=== PATIENT | male | born 1950 | race African-American/Black ===

== ENCOUNTER 2024-06-19 10:13 | Inpatient (IN) | payer OTHER, BC, MEDICAID ==
[~2024-06-19] VITALS: Ht 170.2 cm; Wt 65.6 kg
[2024-06-19 10:24] VITALS: PULSE 47; RESP 17; O2SAT 96
--- NOTE | 2024-06-19 10:24 | ED.PDOC ---
History of Present Illness HPI Comments 74 y.o male presents with PMH of RI, DM, HTN, HDL, CABG, and CVA, presents to the ED via EMS for a chief complaint of generalized weakness that started this morning. EMS reports patient was at the [facility] when he complained of weakness, states his blood glucose was taken which came out to 142 but was found to be hypotensive at 80/40 and with a heart rate of 50. EMS on scene administrated one liter of NS and push dosed 0.02mg of Epi which brought hear rate up to 72 and blood pressure to 113 systolic. In route, patient's heart rate dropped back down to the low 50's, high 40's, EKG read sinus bradycardia. Patient denies any pain, nausea, vomiting, diarrhea, fever, chills, or recent illness. Time Seen by MD: 10:11 Primary Care Provider: DILLAN Reviewed Notes: Nurses Notes, Supervisor Hot Dip Plating Notes, Medications, Allergies Allergies: Coded Allergies: Ibuprofen (Verified Allergy, Severe, 03/09/17) Naproxen (Verified Allergy, Severe, 03/09/17) Home Meds No Active Prescriptions or Reported Meds Information Source: Patient, Emergency Med Personnel Mode of Arrival: EMS Severity: Moderate Timing: Hours Duration: Since onset Prehospital treatment: 12 Lead EKG, Accucheck, Marketing Assistant [employer], Treatment (0.02mg Epi push dose ) Associated signs and symptoms Generalized weakness and slow heart rate Past Medical History PAST MEDICAL HISTORY: DM, High Lipids, HTN, RI Surgical History: CABG, Tonsillectomy Family History Family History: Unobtainable Social History Smoker: Non-Smoker Alcohol: Denies ETOH Use Drugs: Denies Drug Use Lives In: Home Constitutional: reports: weakness; denies: chills, diaphoresis, fatigue, fever, malaise, sweats, others EENTM: denies: blurred vision, double vision, ear bleeding, ear discharge, ear drainage, ear pain, ear ringing, eye pain, eye redness, hearing loss, mouth pain, mouth swelling, nasal discharge, nose bleeding, nose congestion, nose pain, photophobia, tearing, throat pain, throat swelling, voice changes, others Respiratory: denies: cough, hemoptysis, orthopnea, SOB at rest, shortness of breath, SOB with excertion, stridor, wheezing, others Cardiovascular: reports: others (Slow heart rate); denies: chest pain, dizzy spells, diaphoresis, Dyspnea on exertion, edema, irregular heart beat, left arm pain, lightheadedness, palpitations, PND, syncope Gastrointestinal: denies: abdomen distended, abdominal pain, blood streaked bowels, constipated, diarrhea, dysphagia, difficulty swallowing, hematemesis, melena, nausea, poor appetite, poor fluid intake, rectal bleeding, rectal pain, vomiting, others Genitourinary: denies: burning, dysuria, flank pain, frequency, hematuria, incontinence, penile discharge, penile sore, pain, testicle pain, testicle swelling, urgency, others Neurological: denies: dizziness, fainting, headache, left sided numbness, left sided weakness, numbness, paresthesia, pre-existing deficit, right sided numbness, right sided weakness, seizure, speech problems, tingling, tremors, weakness, others Musculoskeletal: denies: back pain, gout, joint pain, joint swelling, muscle pain, muscle stiffness, neck pain, others Integumetry: denies: bruises, change in color, change in hair/nails, dryness, laceration, lesions, lumps, rash, wounds, others Allergic/Immunocompromised: denies: Difficulty Healing, Frequent Infections, Hives, Itching, others Hematologic/Lymphatic: denies: anemia, blood clots, easy bleeding, easy bruising, swollen glands, others Endocrine: denies: excessive hunger, excessive sweating, excessive thirst, excessive urination, flushing, intolerance to cold, intolerance to heat, unexplained weight gain, unexplained weight loss, others Psychiatric: denies: anxiety, bipolar disorder, depression, hopeless, panic disorder, schizophrenia, sleepless, suicidal, others All Other Systems: Reviewed and Negative Physical Exam General Appearance: Moderate Distress HEENT: Normal ENT Inspection, Pharynx Normal, TMs Normal Neck: Full Range of Motion, Non-Tender, Normal, Normal Inspection Respiratory: Chest Non-Tender, Lungs Clear, No Accessory Muscle Use, No Respiratory Distress, Normal Breath Sounds Cardiovascular: Bradycardia, No Edema, No JVD, No Murmur, No Gallop Breast Exam: Deferred Gastrointestinal: No Organomegaly, Non Tender, No Pulsatile Mass, Normal Bowel Sounds, Soft Genitalia: Deferred Pelvic: Deferred Rectal: Deferred Extremities: No calf tenderness, Normal capillary refill, No pedal edema Musculoskeletal : Apperance: Normal 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 Was a procedure done?: No EKG EKG : Pulse Rate (adult): 51 [place]: Normal Cardiac Rhythm: NSR Differential Dx Considerations may include: Influenza, URI, Dehydration, electrolyte imbalance X-Ray, Labs, Meds, VS Vital Signs Date Time Temp Pulse Resp B/P (MAP) Pulse Ox O2 Delivery O2 Flow Rate FiO2 06/19/24 15:04 47 06/19/24 14:00 89 15 113/64 (80) 96 06/19/24 13:45 61 13 124/64 (84) 96 06/19/24 13:30 82 20 96/48 (64) 96 06/19/24 13:15 89 14 112/48 (69) 96 06/19/24 13:00 79 17 106/58 (74) 96 06/19/24 12:45 93 14 110/43 (65) 96 06/19/24 12:30 86 19 104/47 (66) 96 06/19/24 12:15 86 19 101/44 (63) 95 06/19/24 12:01 81/34 06/19/24 12:00 48 17 74/32 (46) 97 06/19/24 11:55 51 17 74/32 (46) 95 06/19/24 11:51 83/38 06/19/24 11:45 74/28 06/19/24 11:40 72 19 69/27 (41) 97 06/19/24 11:26 77 16 57/29 (38) 95 06/19/24 11:15 74 17 79/42 (54) 100 06/19/24 11:09 82/41 06/19/24 11:00 48 15 82/41 (55) 96 06/19/24 10:41 47 20 76/46 (56) 95 06/19/24 10:24 47 17 96 Room Air* 0 21 06/19/24 10:24 97.5 74 17 79/42 (54) 95 97.5 06/19/24 10:24 51 06/19/24 10:22 97.7 47 16 113/59 (77) 98 06/19/24 10:17 51 Lab Test 06/19/24 13:20 06/19/24 12:42 06/19/24 11:42 06/19/24 10:36 Range/Units Urine Color Light-yellow Yellow Urine Clarity Clear Clear Urine pH 6.0 5.0-9.0 Urine Specific [place] 1.013 1.001-1.035 Urine Protein Negative Negative Urine Ketones Negative Negative Urine Blood Negative Negative /uL Urine Nitrite Negative Negative Urine Bilirubin Negative Negative Urine Urobilinogen Normal Negative mg/dL Urine Leukocyte Esterase 1+ Negative /uL Urine RBC 3 0 - 3 /hpf Urine WBC 2 0 - 3 /hpf Urine Squamous Epithelial Cells Few <5 /hpf Urine Bacteria None seen None Seen /hpf Urine Glucose 4+ H Normal mg/dL Lactic Acid Level 2.9 *H 3.0 *H 0.4-2.0 mmol/L Troponin I High Sensitivity 49 47 46 </=54 ng/L Sodium Level 140 136-145 mmol/L Potassium Level 4.9 3.5-5.1 mmol/L Chloride Level 109 H 98-107 mmol/L Carbon Dioxide Level 22 20-31 mmol/L Anion Gap 9 5-15 Blood Urea Nitrogen 21 9-23 mg/dL Creatinine 1.04 0.700-1.30 mg/dL Glomerular Filtration Rate Calc 76 >90 mL/min BUN/Creatinine Ratio 20.2 H 10.0-20.0 Serum Glucose 171 H 74-106 mg/dL Calcium Level 9.3 8.7-10.4 mg/dL White Blood Count 12.3 H 4.4-10.8 10^3/uL Red Blood Count 4.24 L 4.5-5.90 10^6/uL Hemoglobin 12.6 L 13.5-17.5 g/dL Hematocrit 39.9 L 41.0-53.0 % Mean Corpuscular Volume 94.0 80.0-100.0 fL Mean Corpuscular Hemoglobin 29.7 28.0-32.0 pg Mean Corpuscular Hemoglobin Concent 31.6 L 32.0-36.0 g/dL Red Cell Distribution Width 15.0 H 11.8-14.3 % Platelet Count 207 140-450 10^3/uL Mean Platelet Volume 8.8 6.9-10.8 fL Neutrophils (%) (Auto) 78.9 37.0-80.0 % Lymphocytes (%) (Auto) 13.1 10.0-50.0 % Monocytes (%) (Auto) 6.9 0.0-12.0 % Eosinophils (%) (Auto) 1.0 0.0-7.0 % Basophils (%) (Auto) 0.1 0.0-2.0 % Neutrophils # (Auto) 9.7 H 1.6-8.6 10 ^3/uL Lymphocytes # (Auto) 1.6 0.4-5.4 10 ^3/uL Monocytes # (Auto) 0.8 0-1.3 10 ^3/uL Eosinophils # (Auto) 0.1 0-0.8 10 ^3/uL Basophils # (Auto) 0 0-0.2 10 ^3/uL Nucleated Red Blood Cells 0.1 % D-Dimer, Quantitative 0.42 0.0-0.49 mg/L FEU Current Medications Medications (Trade) Dose Ordered Sig/Duy Route Start Time Stop Time Status Last Admin Sodium Chloride 500 ml @ 500 mls/hr Q1H ONCE IV 06/19/24 10:30 06/19/24 11:29 DC 06/19/24 10:37 Dopamine HCl/ Dextrose 250 ml @ 12.938 mls/ hr [id number] ONCE IV 06/19/24 11:00 06/20/24 06:19 06/19/24 11:09 Sodium Chloride 2,000 ml @ 2,000 mls/hr ONCE ONCE IV 06/19/24 11:30 06/19/24 12:29 DC 06/19/24 11:33 Vancomycin HCl 250 ml @ 250 mls/hr ONCE ONCE IV 06/19/24 11:30 06/19/24 12:29 DC 06/19/24 11:52 Ceftriaxone Sodium 50 ml @ 100 mls/hr ONCE ONCE IV 06/19/24 11:30 06/19/24 11:59 DC 06/19/24 11:37 CHEST RADIOGRAPH IMPRESSION: 1. Bilateral interstitial prominence which may reflect pulmonary congestion. The patient is being given Lasix 40 mg IV push The patient was somewhat hypotensive upon arrival so was started on dopamine. The patient was also significantly bradycardic but we did go ahead and start the dopamine in the patient has been maintaining at a rate in the 70s to 80s. The patient was also now normotensive. The patient's lactic acid came back elevated at 2.9 The patient was started on fluid for possible sepsis. The patient was then started on vancomycin and Rocephin for sepsis protocol. The urine shows a UTI as well The patient's chemistry panel is within normal limits. The patient's CBC shows an elevated white blood cell count of 12.8 but otherwise within normal limits The D-dimer is within normal limits At this time, the patient will be admitted to the ICU We will continue treating the patient with the dopamine for the hypotension and bradycardia A cardiology consult will be obtained The patient was being admitted at this time We have discussed the findings with the patient and he is in agreement with the management. Images Reviewed?: Images reviewed and evaluated by me Time of 1ST Reevaluation: 10:24 Reevaluation 1ST: Unchanged Patient Education/Counseling: Diagnosis, Treatment, Prognosis Family Education/Counseling: No Family Present Departure 1 Departure Time of Disposition: 15:35 Impression: Primary Impression: Chronic kidney disease (CKD) stage G3b/A2, moderately decreased glomerular filtration rate (GFR) between 30-44 mL/min/1.73 square meter and albuminuria creatinine ratio between 30-299 mg/g Additional Impressions: Acute on chronic diastolic heart failure Symptomatic bradycardia Disposition: 09 ADMITTED INPATIENT Admit to: ICU Condition: Guarded e-Prescriptions No Active Prescriptions or Reported Meds Critical Care Note Critical Care Time?: Yes (55 min-critical care time only) Stability Stability form required: Yes Unstable for transfer: Low BP (low high or fluctuating BP), May require CPR (possible rapid decline), ED Physician Assesment (Clinical assesment) I personally scribed for CRIS KNOWLES MD ([email or web address]) on 06/19/24 at 10:24. Electronically submitted by Charmaine Byers (Delivery Agent). I personally scribed for CRIS KNOWLES MD ([email or web address]) on 06/19/24 at 12:23. Electronically submitted by Charmaine Byers ([facility]). CRIS KNOWLES MD Jun 19, 2024 10:24
[2024-06-19] MEDS: SODIUM CHLORIDE 0.9% 500 ML IV ONE (10:37)
[2024-06-19 10:58] LABS: Basophils # (auto) 0 10 ^3/uL (0-0.2); Basophils % (auto) 0.1 % (0.0-2.0); Eosinophils # (auto) 0.1 10 ^3/uL (0-0.8); Hematocrit 39.9 % (41.0-53.0); Hemoglobin 12.6 g/dL (13.5-17.5); Lymphocytes # (auto) 1.6 10 ^3/uL (0.4-5.4); Lymphocytes % (auto) 13.1 % (10.0-50.0); Mean Corpuscular Hemoglobin 29.7 pg (28.0-32.0); Mean Corpuscular Hgb Conc. 31.6 g/dL (32.0-36.0); Monocytes # (auto) 0.8 10 ^3/uL (0-1.3); Monocytes % (auto) 6.9 % (0.0-12.0); Neutrophils # (auto) 9.7 10 ^3/uL (1.6-8.6); Neutrophils % (auto) 78.9 % (37.0-80.0); Nucleated Red Blood Cells % 0.1 %; Platelet Count (auto) 207 10^3/uL (140-450); Red Blood Cells 4.24 10^6/uL (4.5-5.90); White Blood Cell 12.3 10^3/uL (4.4-10.8)
[2024-06-19] MEDS: DOPamine 1600MCG/ML D5W 250 ML IV ONE (11:09)
--- NOTE | 2024-06-19 11:24 | ECG ---
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
[2024-06-19] MEDS: SODIUM CHLORIDE 0.9% 2,000 ML IV ONE (11:33)
[2024-06-19] MEDS: cefTRIAXone 1GM/50ML D5W 50 ML IV ONE (11:37)
[2024-06-19] MEDS: SODIUM CHLORIDE 0.9% 1,000 ML IV ONE (11:45)
[2024-06-19] MEDS: VANCOMYCIN 1GM/250ML KIT 250 ML IV ONE (11:52)
--- NOTE | 2024-06-19 12:15 | DVH ---
CHEST RADIOGRAPH Indication: Weakness Technique: Single frontal view of the chest was obtained Comparison: None FINDINGS: Lines and Tubes: None Lungs: Bilateral interstitial prominence. No focal consolidation. Pleura: No effusion. No pneumothorax. Cardiomediastinal contours: Unremarkable Bones: No acute osseous abnormality. Status post median sternotomy. IMPRESSION: 1. Bilateral interstitial prominence which may reflect pulmonary congestion.
[2024-06-19 12:30] LABS: Potassium 4.9 mmol/L (3.5-5.1); Sodium 140 mmol/L (136-145)
[2024-06-19 12:31] LABS: Anion Gap 9 (5-15); Carbon Dioxide 22 mmol/L (20-31)
[2024-06-19 12:32] LABS: Calcium 9.3 mg/dL (8.7-10.4)
[2024-06-19 12:35] LABS: Chloride 109 mmol/L (98-107)
[2024-06-19 12:36] LABS: BUN/Creatinine Ratio 20.2 (10.0-20.0); Blood Urea Nitrogen 21 mg/dL (9-23)
[2024-06-19 12:40] LABS: Glucose 171 mg/dL (74-106)
[2024-06-19 13:30] LABS: Urine Bacteria None Seen /hpf (None Seen)
[2024-06-19 14:48] LABS: Urine Blood Negative /uL (Negative); Urine Clarity Clear (Clear); Urine Color Light-Yellow (Yellow); Urine Protein, UAD Negative (Negative); Urine Specific Gravity 1.013 (1.001-1.035); Urine Urobilinogen Normal (Negative); Urine WBC 2 /hpf (0 - 3)
[2024-06-19] MEDS ORDERED: ACETAMINOPHEN 325 MG TAB PO PRN (15:30)
[2024-06-19] MEDS ORDERED: DOCUSATE SOD 100 MG CAP PO PRN (15:30)
[2024-06-19] MEDS ORDERED: ONDANSETRON HCL 4 MG/2 ML VIAL IV PRN (15:30)
[2024-06-19] MEDS ORDERED: DEXTROSE (50%) 50ML SYRG IV PRN (15:30)
[2024-06-19] MEDS: HYDROcodone-ACET 5/325MG TAB PO PRN (15:49)
[2024-06-19] MEDS: ACCU-CHEK COMFORT CURVE STRIP VI SCH (17:15)
[2024-06-19] MEDS: InsuLIN REG 1unit/0.01ml Soln (100units/ml) SC SCH ×2 (17:21→21:48)
--- NOTE | 2024-06-19 18:02 | DVHHP2 ---
History of Present Illness Reason for Visit: Hypotension History of Present Illness The patient is a 74-year-old male with past medical history of DM, hyperlipidemia, PR, and hypertension who presented to [facility] ED for evaluation of generalized weakness. Patient reports symptoms progressively get worse that EMS were called. When EMS arrived at the scene, patient was hypotensive with blood pressure at 80/40, heart rate 50, and severe weakness. Patient was given IV fluid 1 L of NS, 0.02 mg of epi with improved vital signs at rate 72, systolic blood pressure at 113 EN route to our facility ED. patient was seen and evaluated in the ED, laboratory data shows WBC 12.3, platelets 207, sodium 140, potassium 4.9, BUN 21, creatinine 1.04, GFR 76, glucose 171, troponin 48, lactic acid 2.9, blood pressure 79/42 trending up to 113/64, heart rate 47 trending up to 88, temperature 97.6, O2 saturation 96% on oxygen. Chest x-ray revealing bilateral interstitial prominence which may reflect pulmonary congestion, urinalysis positive for urinary tract infection. Patient was started on IV antibiotic regimen Zosyn, please see medication orders section in the computer. On my assessment, patient denies chest pain, no headache, no dizziness, no loss of consciousness, currently on oxygen, no nausea, no vomiting, no fever, no chills. Patient was admitted for further evaluation and medical management. Past Medical History DM, High Lipids, HTN, PR Past Surgical History CABG, Tonsillectomy Family History Reviewed, noncontributory to the management of this case. Past Social History The patient lives at home, denies smoking, alcohol or illicit drugs abuse. Review of Systems Constitutional: Yes: Weakness; No: Fever, Chills, Sweats, Malaise, Other Eyes: No: Pain, Vision change, Conjunctivae inflammation, Eyelid inflammation, Other, Redness ENT: No: Ear pain, Ear discharge, Nose pain, Nose discharge, Nose congestion, Mouth pain, Mouth swelling, Throat pain, Throat swelling, Other Respiratory: Shortness of breath; No: Cough, Dry, SOB with excertion, Wheezing, Hemoptysis, Pleuritic Pain, Sputum, Wheezing, Other Cardiovascular: No: Chest Pain, Palpitations, Orthopnea, Paroxysmal Noc. Dyspnea, Edema, Lt Headedness, Other Gastrointestinal: No: Nausea, Vomiting, Abdominal Pain, Diarrhea, Constipation, Melena, Hematochezia, Other Genitourinary: Dysuria; No Frequency, No Incontinence, No Hematuria, No Retention, No Other Musculoskeletal: No: other, neck pain, shoulder pain, arm pain, back pain, hand pain, leg pain, foot pain Skin: No: Rash, Lesions, Jaundice, Bruising, Other Neurological: Weakness; No: Numbness, Incoordination, Change in speech, Confusion, Seizures, Other Allergies: Coded Allergies: Ibuprofen (Verified Allergy, Severe, 03/09/17) Naproxen (Verified Allergy, Severe, 03/09/17) Medications Current Medications Medications Dose Ordered Sig/Duy Route Start Time Stop Time Status Last Admin Dose Admin Piperacillin Sod/ Tazobactam Sod 100 ml @ 25 mls/hr Q8HR IV 06/19/24 22:00 Clopidogrel Bisulfate 75 mg DAILY PO 06/20/24 10:00 Diagnostic Test (Pha) 1 strip ACHS 06/19/24 17:00 06/19/24 17:15 1 STRIP Insulin Human Regular HS SC 06/19/24 22:00 Insulin Human Regular AC SC 06/19/24 17:00 06/19/24 17:21 3 UNITS Dextrose 50 ml UD PRN IV 06/19/24 15:30 Acetaminophen/ Hydrocodone Bitart 1 tab Q4HP PRN PO 06/19/24 15:30 06/19/24 15:49 1 TAB Ondansetron HCl 4 mg Q4HP PRN IV 06/19/24 15:30 Docusate Sodium 100 mg BIDPRN PRN PO 06/19/24 15:30 Acetaminophen 650 mg Q6HP PRN PO 06/19/24 15:30 Sodium Chloride 1,000 ml @ 50 mls/hr Q20H IV 06/19/24 15:30 Exam Vital Signs Vital Signs Date Time Temp Pulse Resp B/P (MAP) Pulse Ox O2 Delivery O2 Flow Rate FiO2 06/19/24 17:43 79 06/19/24 17:15 18 121/77 (92) 93 06/19/24 10:24 Room Air* 0 21 06/19/24 10:24 97.5 97.5 General Appearance: Alert, Oriented X3, Cooperative, No acute distress HEENT: Atraumatic, PERRLA, EOMI, Mucous membr. moist/pink Respiratory: Normal air movement, Other (Congestion) Cardiovascular: Regular rate, Normal S1, Normal S2, No murmurs Abdominal: Normal bowel sounds, Soft, No tenderness, No hepatospenomegaly, No masses Extremities: No clubbing, No cyanosis, No edema, Normal pulses, No tenderness/swelling Skin: No rashes, No breakdown, No significant lesion Neuro: Normal speech, Normal tone, Sensation intact, Cranial nerves 3-12 NL, Reflexes 2+, Other (Generalized weakness) Psych/Mental Status: Mental status NL, Mood NL Labs/Xrays Labs Test 06/19/24 17:13 06/19/24 13:20 06/19/24 12:42 06/19/24 11:42 Range/Units POC Glucose 180 H 70-106 mg/dl Urine Color Light-yellow Yellow Urine Clarity Clear Clear Urine pH 6.0 5.0-9.0 Urine Specific [place] 1.013 1.001-1.035 Urine Protein Negative Negative Urine Ketones Negative Negative Urine Blood Negative Negative /uL Urine Nitrite Negative Negative Urine Bilirubin Negative Negative Urine Urobilinogen Normal Negative mg/dL Urine Leukocyte Esterase 1+ Negative /uL Urine RBC 3 0 - 3 /hpf Urine WBC 2 0 - 3 /hpf Urine Squamous Epithelial Cells Few <5 /hpf Urine Bacteria None seen None Seen /hpf Urine Glucose 4+ H Normal mg/dL Lactic Acid Level 2.9 *H 0.4-2.0 mmol/L Troponin I High Sensitivity 49 </=54 ng/L Sodium Level 140 136-145 mmol/L Potassium Level 4.9 3.5-5.1 mmol/L Chloride Level 109 H 98-107 mmol/L Carbon Dioxide Level 22 20-31 mmol/L Anion Gap 9 5-15 Blood Urea Nitrogen 21 9-23 mg/dL Creatinine 1.04 0.700-1.30 mg/dL Glomerular Filtration Rate Calc 76 >90 mL/min BUN/Creatinine Ratio 20.2 H 10.0-20.0 Serum Glucose 171 H 74-106 mg/dL Calcium Level 9.3 8.7-10.4 mg/dL Test 06/19/24 10:36 Range/Units White Blood Count 12.3 H 4.4-10.8 10^3/uL Red Blood Count 4.24 L 4.5-5.90 10^6/uL Hemoglobin 12.6 L 13.5-17.5 g/dL Hematocrit 39.9 L 41.0-53.0 % Mean Corpuscular Volume 94.0 80.0-100.0 fL Mean Corpuscular Hemoglobin 29.7 28.0-32.0 pg Mean Corpuscular Hemoglobin Concent 31.6 L 32.0-36.0 g/dL Red Cell Distribution Width 15.0 H 11.8-14.3 % Platelet Count 207 140-450 10^3/uL Mean Platelet Volume 8.8 6.9-10.8 fL Neutrophils (%) (Auto) 78.9 37.0-80.0 % Lymphocytes (%) (Auto) 13.1 10.0-50.0 % Monocytes (%) (Auto) 6.9 0.0-12.0 % Eosinophils (%) (Auto) 1.0 0.0-7.0 % Basophils (%) (Auto) 0.1 0.0-2.0 % Neutrophils # (Auto) 9.7 H 1.6-8.6 10 ^3/uL Lymphocytes # (Auto) 1.6 0.4-5.4 10 ^3/uL Monocytes # (Auto) 0.8 0-1.3 10 ^3/uL Eosinophils # (Auto) 0.1 0-0.8 10 ^3/uL Basophils # (Auto) 0 0-0.2 10 ^3/uL Nucleated Red Blood Cells 0.1 % D-Dimer, Quantitative 0.42 0.0-0.49 mg/L FEU PATIENT: YURI BOTELLO ACCT: [id number] UNIT: [id number] : 1950 LOC: ER ROOM / BED: / AGE / SEX: 74 / M ADM STATUS: REG ER SERVICE 1019 ORDERING PHYSICIAN: CRIS KNOWLES MD PROCEDURE(s): CXRP - CHEST PORTABLE REASON: weakness ORDER NUMBER(s): [id number], ACCESSION NUMBER(s): [id number] CHEST RADIOGRAPH Indication: Weakness Technique: Single frontal view of the chest was obtained Comparison: None FINDINGS: Lines and Tubes: None Lungs: Bilateral interstitial prominence. No focal consolidation. Pleura: No effusion. No pneumothorax. Cardiomediastinal contours: Unremarkable Bones: No acute osseous abnormality. Status post median sternotomy. IMPRESSION: 1. Bilateral interstitial prominence which may reflect pulmonary congestion. Assessment/Plan Assessment/Plan Sepsis, unspecified organism Generalized weakness Urinary tract infection Acute on chronic diastolic heart failure Diabetes mellitus with hyperglycemia Plan 1. Admit to intensive care unit 2. Breathing treatment 3. Pain control management 4. IV antibiotic management 5. Management of fluids and electrolytes 6. Consultation for Cardiology 7. Diagnostic test chest x-ray 8. DVT prophylaxis-on Plavix 9. Repeat labs CBC, CMP in a.m. 10. Home medication reviewed and reconciled 11. Continue with current medical management 12. Treatment plan discussed with patient and RN. Patient verbalized understanding. Plan discussed with: Patient, Other (RN) My Orders Orders - KELVIN WALKER DNP Procedure Category Date Status Time Consistent DIET 06/19/24 Transmitted Carb(Ccho)Diabetes Dinner Urine Bacterial AVEL 06/19/24 Logged Culture 15:23 Piperacillin-Tazob PHA 06/19/24 In Process 3.375gm (Zosyn 3.375g 22:00 Clopidogrel Bisulfate PHA 06/20/24 In Process (Plavix) 10:00 Glucose Blood PHA 06/19/24 In Process (Accu-Chek Comfort 17:00 Insulin R (Human) PHA 06/19/24 In Process (Insulin R) 22:00 Insulin R (Human) PHA 06/19/24 In Process (Insulin R) 17:00 Dextrose 50% Syringe PHA 06/19/24 In Process 15:30 Allergies SOCORRO 06/19/24 In Process 15:23 Code Status CODE 06/19/24 Transmitted 15:23 Oxygen Per Hour RT 06/19/24 Transmitted 15:23 Hydrocodone-Acet PHA 06/19/24 In Process 5/325mg Tab ([place] 15:30 Ondansetron Hcl PHA 06/19/24 In Process (Zofran) 15:30 Docusate Sodium PHA 06/19/24 In Process Capsule (Colace 15:30 Fall Risk Precautions SOCORRO 06/19/[address] 15:23 Complete Blood Count LAB 06/20/24 Verified 04:00 Comprehensive LAB 06/20/24 Verified Metabolic Panel 04:00 Cardiac DIET 06/19/24 Transmitted Diet-2gna,Lofat,Lochol Dinner Condition: Serious SOCORRO 06/19/24 In Process 15:23 Acetaminophen Tablet PHA 06/19/24 In Process (Tylenol Tablet) 15:30 Sequential SOCORRO 06/19/24 In Process Compression Device Sod Chl 0.45% (Sodium PHA 06/19/24 In Process Chloride 0.45% Via 15:30 * Cardiology Consult CONS 06/19/24 Transmitted 15:23 Ct Ab Pel Wo Con-No CT 06/19/24 Logged Oral Or Iv 17:08 Problem List: (1) Sepsis, unspecified organism (2) Generalized weakness (3) Urinary tract infection (4) Acute on chronic diastolic heart failure (5) Diabetes mellitus with hyperglycemia Date of Service: Jun 19, 2024 Billing Provider: KELVIN WALKER DNP Common Visit Codes: [id number] INP/OBS CARE (HIGH) KELVIN WALKER DNP Jun 19, 2024 18:02
[2024-06-19] MEDS ORDERED: NITROGLYCERIN 0.4 MG SL TAB SL PRN ×2 (18:15)
[2024-06-19] MEDS ORDERED: MORPHINE SULFATE INJ 2 MG/ml SYRG IV PRN ×2 (18:15)
[2024-06-19] MEDS: DOPamine 1600MCG/ML D5W 250 ML IV SCH (18:40)
[2024-06-19] MEDS: SOD CHL 0.45% 1,000 ML IV SCH (19:23)
--- NOTE | 2024-06-19 20:31 | DVH ---
CT SCAN ABDOMEN AND PELVIS WITHOUT CONTRAST CLINICAL HISTORY: Abd Pain TECHNIQUE: Helical axial images are obtained from the lung bases through the pelvis without oral contrast. No intravenous contrast was administered. Coronal and sagittal reformatted images were generated from thin section reconstructions. One or more of the following radiation dose reduction techniques were used for this examination: automated exposure control, adjustment of the mA and/or kV according to patient size, use of iterative reconstruction technique. COMPARISON: 09/13/2021 FINDINGS: LOWER THORAX: Imaged lung bases are grossly clear. Coronary artery calcifications noted. ABDOMEN AND PELVIS: Evaluation of visceral and vascular structures is limited due to lack of contrast administration. Scattered calcifications in the liver and spleen likely from a prior infectious/inflammatory process. No sizable, radiopaque cholelithiasis. The pancreas and adrenals appear grossly unremarkable. No hydroureteronephrosis. Advanced aortoiliac atherosclerotic calcifications. No evidence of abdominal aortic aneurysm. No evidence of small-bowel obstruction. The appendix not clearly identified, however, no pericecal inflammatory changes are noted at this time. Moderate volume stool throughout the colon and rectum. No free intraperitoneal air or fluid identified. Bladder is markedly distended. No sizable bladder calculus. Degenerative changes of the lumbar spine, most prominent at L5-S1. IMPRESSION: No bowel obstruction, free intraperitoneal air or sizable inflammatory collections identified on this noncontrast examination. Moderate volume stool throughout the colon and rectum may indicate constipation. Distended urinary bladder. Correlate for urinary retention. A few other findings as above. ALY GUERRERO
[2024-06-19] MEDS: PIPERACILLIN-TAZOB 3.375GM 100 ML IV SCH (21:42)
[2024-06-19 22:49] VITALS: PULSE 65; RESP 16; O2SAT 98
[2024-06-20] VITALS (9 sets, daily range): BP systolic 108–145; BP diastolic 45–63; PULSE 61–86; RESP 15–18; TEMP 97.6–98.5; O2SAT 95–98
[2024-06-20 05:55] LABS: Basophils # (auto) 0 10 ^3/uL (0-0.2); Basophils % (auto) 0.4 % (0.0-2.0); Eosinophils # (auto) 0.1 10 ^3/uL (0-0.8); Eosinophils % (auto) 1.1 % (0.0-7.0); Hematocrit 41.7 % (41.0-53.0); Hemoglobin 13.8 g/dL (13.5-17.5); Lymphocytes # (auto) 1.9 10 ^3/uL (0.4-5.4); Lymphocytes % (auto) 22.9 % (10.0-50.0); Mean Corpuscular Hemoglobin 30.5 pg (28.0-32.0); Mean Corpuscular Hgb Conc. 33.2 g/dL (32.0-36.0); Mean Corpuscular Volume 91.8 fL (80.0-100.0); Monocytes % (auto) 12.6 % (0.0-12.0); Neutrophils # (auto) 5.1 10 ^3/uL (1.6-8.6); Nucleated Red Blood Cells % 0.2 %; Platelet Count (auto) 225 10^3/uL (140-450); Red Blood Cells 4.54 10^6/uL (4.5-5.90); Red Cell Distribution Width 14.5 % (11.8-14.3); White Blood Cell 8.1 10^3/uL (4.4-10.8)
[2024-06-20 06:12] LABS: Alanine Aminotransferase 19 U/L (7-40); Alkaline Phosphatase 67 U/L (46-116); Anion Gap 10 (5-15); Aspartate Aminotransferase 19 U/L (13-40); BUN/Creatinine Ratio 13.3 (10.0-20.0); Bilirubin, Total 0.4 mg/dL (0.2-1.0); Blood Urea Nitrogen 12 mg/dL (9-23); Calcium 9.6 mg/dL (8.7-10.4); Carbon Dioxide 23 mmol/L (20-31); Chloride 106 mmol/L (98-107); Potassium 3.8 mmol/L (3.5-5.1); Sodium 139 mmol/L (136-145); Total Protein 6.8 g/dL (5.7-8.2)
[2024-06-20 06:16] LABS: Glucose 122 mg/dL (74-106)
--- NOTE | 2024-06-20 09:43 | DVHINCON2 ---
Date Seen: Jun 20, [address] Reason for Consultation Hypotension History of Present Illness This is a pleasant 74-year-old man who presented to the emergency room via EMS with a chief complaint of generalized weakness yesterday morning. The [place] he felt increased lethargy with a reported syncopal event lasting a "few seconds" with bystanders breaking his fall. Denies any head trauma or incontinence. Upon EMS arrival he was found with a systolic blood pressure in the 80s mmHg and a heart rate in the 50s bpm for which he was medicated with NS x1 L, administered pushed epi at 0.02 mg x 1, and a BSL of 142 ng/dL. Upon arrival to the emergency room he underwent a 12 lead electrocardiogram revealing a sinus rhythm with premature ventricular contractions. At that time, he was administered IV fluids and placed on a dopamine drip for hemodynamic support. Denies chest pain, palpitations, diaphoresis, or shortness of breath. Serial troponin levels are negative. Denies following up with a lead accountant in the outpatient setting. Significant medical history includes severe coronary artery disease status post triple- vessel coronary artery bypass graft at [facility] in 2014, cerebrovascular accident, fep-dgjlryo-cbubnsilr diabetes mellitus, hypertension, dyslipidemia, and depression. Open note, the patient was recently prescribed carvedilol 25 mg q.d. on 06/15/2024. Past Medical History Past medical history reviewed. No other significant than mentioned above. Past Surgical History Triple-vessel CABG, 2014 Family History Family history reviewed. Social History Denies the use of illicit drugs, alcohol, or tobacco use. Allergies: Coded Allergies: Ibuprofen (Verified Allergy, Severe, 03/09/17) Naproxen (Verified Allergy, Severe, 03/09/17) Home Meds No Active Prescriptions or Reported Meds Home Meds Home medications reviewed. Current Medications Current Medications Medications (Trade) Dose Ordered Sig/Duy Route PRN Reason Start Time Stop Time Status Last Admin Piperacillin Sod/ Tazobactam Sod 100 ml @ 25 mls/hr Q8HR IV 06/19/24 22:00 06/20/24 06:03 Clopidogrel Bisulfate (Plavix) 75 mg DAILY PO 06/20/24 10:00 Diagnostic Test (Pha) (Accu-Chek Comfort Curve T) 1 strip ACHS 06/19/24 17:00 06/20/24 06:32 Insulin Human Regular (InsuLIN R) HS SC 06/19/24 22:00 06/19/24 21:48 Insulin Human Regular (InsuLIN R) AC SC 06/19/24 17:00 06/19/24 17:21 Dextrose 50 ml UD PRN IV Blood Sugar LESS THAN 60 06/19/24 15:30 Acetaminophen/ Hydrocodone Bitart ([place] 5/325MG Tab) 1 tab Q4HP PRN PO MODERATE PAIN (4-6 PAIN SCALE) 06/19/24 15:30 06/19/24 15:49 Ondansetron HCl (Zofran) 4 mg Q4HP PRN IV NAUSEA / VOMITING 06/19/24 15:30 Docusate Sodium (Colace Capsule) 100 mg BIDPRN PRN PO FOR CONSTIPATION 06/19/24 15:30 Acetaminophen (Tylenol Tablet) 650 mg Q6HP PRN PO PAIN SCALE 1-3 OR TEMP>100.4 06/19/24 15:30 Sodium Chloride 1,000 ml @ 50 mls/hr Q20H IV 06/19/24 15:30 06/19/24 19:23 Nitroglycerin (Ntrostat Sublingual) 0.4 mg Q5MINP PRN SL FOR CHEST PAIN 06/19/24 18:15 06/19/24 18:06 DC Morphine Sulfate 2 mg Q30M PRN IV FOR CHEST PAIN 06/19/24 18:15 06/19/24 18:06 DC Morphine Sulfate 2 mg Q30M PRN IV FOR CHEST PAIN 06/19/24 18:15 Nitroglycerin (Ntrostat Sublingual) 0.4 mg Q5MINP PRN SL FOR CHEST PAIN 06/19/24 18:15 Dopamine HCl/ Dextrose 250 ml @ 12.938 mls/ hr [id number] IV 06/19/24 18:45 06/19/24 18:40 Review of Systems Constitutional: Generalized weakness Ears, Nose, & Throat: No symptom reported Eyes: No symptom reported Neurological: Dizziness, syncope Pulmonary/Respiratory: No symptom reported Cardiovascular: No symptom reported Gastrointestinal: No symptom reported Genitourinary: No symptom reported Musculoskeletal: No symptom reported Skin: No symptom reported Psychiatric: No symptom reported Endocrine: No symptom reported Hemotologic/Lymphatic: No symptom reported Vital Signs Vital Signs Date Time Temp Pulse Resp B/P (MAP) Pulse Ox O2 Delivery O2 Flow Rate FiO2 06/20/24 09:16 87 12 115/64 (81) 95 06/20/24 08:00 Room Air* 0 21 06/20/24 08:00 98.1 98.1 Physical Exam General Appearance: Cooperative. Well developed. Well nourished. In no acute distress Head Exam: Normal inspection Neck Exam: Normal inspection. Non-tender. Normal alignment Pulmonary/Respiratory: Chest non-tender. Clear bilateral breath sounds Cardiovascular/Chest: Regular rate and rhythm. S1, S2. Sinus rhythm with PVCs. No murmurs. No JVD. Peripheral Pulses: 2+ Radial (R). 2+ Radial (L). 2+ Pedal (R). 2+ Pedal (L) Abdominal Exam: Normal bowel sounds. Soft. Nontender. No hepatospenomegaly. No masses Ankle Exam: Negative ankle edema Lower extremities: Negative lower extremity edema Neuro/Mental Status: A&O x3. Coherent Thoughts/Psych: Normal thought pattern. Appropriate mood and affect. Good judgement and insight Appearance: In no acute distress Skin Exam: Normal inspection. Normal color. Warm. Dry Labs/Diagnostic Data Labs Test 06/20/24 06:30 06/20/24 05:20 06/19/24 13:20 06/19/24 12:42 Range/Units POC Glucose 122 H 70-106 mg/dl White Blood Count 8.1 # 4.4-10.8 10^3/uL Red Blood Count 4.54 4.5-5.90 10^6/uL Hemoglobin 13.8 13.5-17.5 g/dL Hematocrit 41.7 41.0-53.0 % Mean Corpuscular Volume 91.8 80.0-100.0 fL Mean Corpuscular Hemoglobin 30.5 28.0-32.0 pg Mean Corpuscular Hemoglobin Concent 33.2 32.0-36.0 g/dL Red Cell Distribution Width 14.5 H 11.8-14.3 % Platelet Count 225 140-450 10^3/uL Mean Platelet Volume 8.5 6.9-10.8 fL Neutrophils (%) (Auto) 63.0 37.0-80.0 % Lymphocytes (%) (Auto) 22.9 10.0-50.0 % Monocytes (%) (Auto) 12.6 H 0.0-12.0 % Eosinophils (%) (Auto) 1.1 0.0-7.0 % Basophils (%) (Auto) 0.4 0.0-2.0 % Neutrophils # (Auto) 5.1 1.6-8.6 10 ^3/uL Lymphocytes # (Auto) 1.9 0.4-5.4 10 ^3/uL Monocytes # (Auto) 1.0 0-1.3 10 ^3/uL Eosinophils # (Auto) 0.1 0-0.8 10 ^3/uL Basophils # (Auto) 0 0-0.2 10 ^3/uL Nucleated Red Blood Cells 0.2 % Sodium Level 139 136-145 mmol/L Potassium Level 3.8 3.5-5.1 mmol/L Chloride Level 106 98-107 mmol/L Carbon Dioxide Level 23 20-31 mmol/L Anion Gap 10 5-15 Blood Urea Nitrogen 12 9-23 mg/dL Creatinine 0.90 0.700-1.30 mg/dL Glomerular Filtration Rate Calc 91 >90 mL/min BUN/Creatinine Ratio 13.3 10.0-20.0 Serum Glucose 122 H 74-106 mg/dL Calcium Level 9.6 8.7-10.4 mg/dL Total Bilirubin 0.4 0.2-1.0 mg/dL Aspartate Amino Transferase (AST) 19 13-40 U/L Alanine Aminotransferase (ALT) 19 7-40 U/L Alkaline Phosphatase 67 46-116 U/L Total Protein 6.8 5.7-8.2 g/dL Albumin 4.0 3.2-4.8 g/dL Urine Color Light-yellow Yellow Urine Clarity Clear Clear Urine pH 6.0 5.0-9.0 Urine Specific [place] 1.013 1.001-1.035 Urine Protein Negative Negative Urine Ketones Negative Negative Urine Blood Negative Negative /uL Urine Nitrite Negative Negative Urine Bilirubin Negative Negative Urine Urobilinogen Normal Negative mg/dL Urine Leukocyte Esterase 1+ Negative /uL Urine RBC 3 0 - 3 /hpf Urine WBC 2 0 - 3 /hpf Urine Squamous Epithelial Cells Few <5 /hpf Urine Bacteria None seen None Seen /hpf Urine Glucose 4+ H Normal mg/dL Lactic Acid Level 2.9 *H 0.4-2.0 mmol/L Troponin I High Sensitivity 49 </=54 ng/L Test 06/19/24 10:36 Range/Units D-Dimer, Quantitative 0.42 0.0-0.49 mg/L FEU B-Type Natriuretic Peptide 71.11 0-100 pg/mL Microbiology Date/Time Source Procedure Growth Status 06/19/24 13:20 Voided Urine Urine Culture - Preliminary Resulted Assessment Syncope and collapse Likely beta-dominga induced bradycardia/hypotension Coronary artery disease status post triple-vessel CABG, 2014 Rule out structural heart disease Hypertension Dyslipidemia HX of CVA Ypu-nzpbqnh-bzjvxycwq diabetes mellitus Urinary retention Plan/Recommendation (Dr. Julian) The patient with generalized weakness, syncope, and collapse is scheduled for a head CT to rule out acute intracranial processes. In the meantime, obtain a transthoracic echocardiogram to rule out structural heart disease. Highly suspected beta-dominga induced bradycardia and hypotension as the patient was recently prescribed carvedilol 25 mg on 06/15/2024. Avoid AV stalin blocking agents and antihypertensive therapy at this time. Initiate single-antiplatelet therapy and lipid lowering agent given history of coronary artery disease. Monitor ECG changes and notify. Thank you for allowing us to participate in th is patient's care. Please call if you have any questions or concerns. This medical document was created using an electronic medical record system with voice recognition software and computerized dictation system. Although this document has been carefully reviewed, there might still be some phonetic and typographical errors. Occasional wrong-word or ``sound-alike substitutions may have occurred due to the inherent limitations of voice recognition software. These areas are purely typographical due to imperfections of the software programs and do not reflect any compromise in the patient's medical care. Please read the chart carefully and recognize, using context, where these substitutions have occurred. Plan discussed with: Patient, Other Date of Service: Jun 20, 2024 Billing Provider: SHANA JULIAN MD Cardiology Common Codes: [id number] INP/OBS CARE (High) HARVEY BARCENAS [facility] Jun 20, 2024 09:43
[2024-06-20] MEDS: CLOPIDOGREL BISULFATE 75 MG TAB PO SCH (10:15)
[2024-06-20 10:35] LABS: Magnesium 1.8 mg/dL (1.6-2.6)
--- NOTE | 2024-06-20 11:00 | DVH ---
EXAM: CT HEAD WITHOUT CONTRAST INDICATION: Syncope TECHNIQUE: CT of the head without intravenous contrast. Radiation Dose Information: CT Dose: CTDI volume is 55.80 mGy. Dose-length product is 986.41 mGy*cm The dose indicators for CT are the volume Computed Tomography (CT) Dose Index (CTDIvol) and the Dose Length Product (DLP), and are measured in units of mGy and mGy-cm, respectively. These indicators are not patient dose, but values generated from the CT scanner acquisition factors. The report includes radiation exposure data for exposures received during this examination. COMPARISON: CT brain report 12/28/2021 FINDINGS: There is no evidence of acute intracranial hemorrhage, extra-axial collection, mass effect, midline s hift, herniation or hydrocephalus. Subcentimeter chronic appearing lacunar infarct at the right cauda te head / internal capsule. The ventricles, sulci and cisterns are age appropriate. Bilateral basal ganglia calcifications. The ramos-white differentiation is intact. Patchy periventricular and subcortical white matter hypoattenuation is nonspecific but may be related to small vessel ischemic disease. The visualized paranasal sinuses and mastoid air cells are clear. The surrounding soft tissues and osseous structures are unremarkable. IMPRESSION: 1. No CT evidence of acute intracranial abnormality. 2. Chronic appearing subcentimeter lacunar infarct of the right caudate head / internal capsule. 3. Moderate periventricular and deep white matter hypoattenuation, likely representing chronic microa ngiopathic ischemic disease. HS:Y
--- NOTE | 2024-06-20 12:00 | DVHPN2 ---
Reviewed: Care Plan, H&P, Labs, Medications, Previous Orders, Radiology Changes from previous H/P or p: No Changes Eyes: No Pain, No Vision change, No Conjunctivae inflammation, No Eyelid inflammation, No Other, No Redness ENT: No Ear pain, No Ear discharge, No Nose pain, No Nose discharge, No Nose congestion, No Mouth pain, No Mouth swelling, No Throat pain, No Throat swelling, No Other Cardiovascular: No Chest Pain, No Palpitations, No Orthopnea, No Paroxysmal Noc. Dyspnea, No Edema, No Lt Headedness, No Other Respiratory: No Cough, No Dry; Shortness of breath; No SOB with excertion, No Wheezing, No Hemoptysis, No Pleuritic Pain, No Sputum, No Other Gastrointestinal: No Nausea, No Vomiting, No Abdominal Pain, No Diarrhea, No Constipation, No Melena, No Hematochezia, No Other Genitourinary: Dysuria; No Frequency, No Incontinence, No Hematuria, No Retention, No Other Musculoskeletal: No other, No neck pain, No shoulder pain, No arm pain, No back pain, No hand pain, No leg pain, No foot pain Skin: No Rash, No Lesions, No Jaundice, No Bruising, No Other Objective Vitals Vital Signs Date Time Temp Pulse Resp B/P (MAP) Pulse Ox O2 Delivery O2 Flow Rate FiO2 06/20/24 10:57 64 15 95 Room Air* 0 21 06/20/24 10:15 88/46 (60) 06/20/24 08:00 98.1 98.1 Intake/Output Intake and Output 06/20/24 07:00 Intake Total 3433.460 ml Output Total 4000 ml Balance -566.540 ml Intake IV Total 3433.460 ml Output Urine Total 4000 ml Medications Current Medications Medications Dose Ordered Sig/Duy Route Start Time Stop Time Status Last Admin Dose Admin Piperacillin Sod/ Tazobactam Sod 100 ml @ 25 mls/hr Q8HR IV 06/19/24 22:00 06/20/24 06:03 25 MLS/HR Clopidogrel Bisulfate 75 mg DAILY PO 06/20/24 10:00 06/20/24 10:15 75 MG Diagnostic Test (Pha) 1 strip ACHS 06/19/24 17:00 06/20/24 06:32 1 STRIP Insulin Human Regular HS SC 06/19/24 22:00 06/19/24 21:48 3 UNITS Insulin Human Regular AC SC 06/19/24 17:00 06/19/24 17:21 3 UNITS Dextrose 50 ml UD PRN IV 06/19/24 15:30 Acetaminophen/ Hydrocodone Bitart 1 tab Q4HP PRN PO 06/19/24 15:30 06/19/24 15:49 1 TAB Ondansetron HCl 4 mg Q4HP PRN IV 06/19/24 15:30 Docusate Sodium 100 mg BIDPRN PRN PO 06/19/24 15:30 Acetaminophen 650 mg Q6HP PRN PO 06/19/24 15:30 Sodium Chloride 1,000 ml @ 50 mls/hr Q20H IV 06/19/24 15:30 06/20/24 11:08 50 MLS/HR Morphine Sulfate 2 mg Q30M PRN IV 06/19/24 18:15 Nitroglycerin 0.4 mg Q5MINP PRN SL 06/19/24 18:15 Atorvastatin Calcium 40 mg HS PO 06/20/24 22:00 Enoxaparin Sodium 40 mg DAILY SC 06/21/24 10:00 Laboratory Results Laboratory Tests 06/20/24 05:20 Chemistry Test 06/20/24 05:20 Albumin 4.0 g/dL (3.2-4.8) Calcium Level 9.6 mg/dL (8.7-10.4) Magnesium Level 1.8 mg/dL (1.6-2.6) Total Protein 6.8 g/dL (5.7-8.2) Lipid panel Test 06/20/24 05:20 Cholesterol Level 117 mg/dL (< 200) HDL Cholesterol 54 mg/dL (40-59) Triglycerides Level 88 mg/dL (< 150) LFT Test 06/20/24 05:20 Alanine Aminotransferase (ALT) 19 U/L (7-40) Alkaline Phosphatase 67 U/L (46-116) Aspartate Amino Transferase (AST) 19 U/L (13-40) Total Bilirubin 0.4 mg/dL (0.2-1.0) HgA1c, TSH Test 06/20/24 05:20 Hemoglobin A1c 7.4 % A1C (<5.7) H Thyroid Stimulating Hormone (TSH) 0.39 uIU/mL (0.55-4.78) L Urinalysis Test 06/19/24 13:20 Urine Color Light-yellow (Yellow) Urine Clarity Clear (Clear) Urine pH 6.0 (5.0-9.0) Urine Specific [place] 1.013 (1.001-1.035) Urine Protein Negative (Negative) Urine Ketones Negative (Negative) Urine Blood Negative /uL (Negative) Urine Nitrite Negative (Negative) Urine Bilirubin Negative (Negative) Urine Urobilinogen Normal mg/dL (Negative) Urine Leukocyte Esterase 1+ /uL (Negative) Urine RBC 3 /hpf (0 - 3) Urine WBC 2 /hpf (0 - 3) Urine Squamous Epithelial Cells Few /hpf (<5) Urine Bacteria None seen /hpf (None Seen) Urine Glucose 4+ mg/dL (Normal) H Microbiology Microbiology Date/Time Source Procedure Growth Status 06/19/24 13:20 Voided Urine Urine Culture - Preliminary Resulted 06/19/24 10:36 Blood Blood Culture - Preliminary NO GROWTH AFTER 24 HOURS OF INCUBATION. 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 cardiology consult appreciated Coronary artery disease status post triple-vessel CABG, 2014 Rule out structural heart disease Hypertension Dyslipidemia HX of CVA Ysc-ddrjpjl-syowxjnxw diabetes mellitus Urinary retention Echocardiogram result pending CT head negative CT abdomen pelvis without contrast negative Blood cultures negative Urine cultures negative Time Spent 65 minutes Patient is full code Advanced care planning time 20 minutes Patient is hospice revoked Plan discussed with: Patient Date of Service: Jun 20, 2024 Billing Provider: KAMALJIT WEBB MD Common Visit Codes: [id number] CARE 30-74 MIN KAMALJIT WEBB MD Jun 20, 2024 12:00
--- NOTE | 2024-06-20 14:11 | DVHSR ---
APPROVED REPORT EXAM: Two-dimensional and M-mode echocardiogram with Doppler and color Doppler. Blood Pressure: 122/67 mmHg INDICATION Heart Failure RISK FACTORS Height: 5'7", Weight: 152 DIMENSIONS LVDd5.1 (3.8-5.7cm)LA (2D)3.3 (1.9-4.0cm)Aortic Root3.5 (2.0-3.7cm) LVDs3.9 (2.5-4.0cm)LA (MM) (1.9-4.0cm)Aortic Cusp Exc1.8 (1.5-2.0cm) EF (%) 45.0 (55-70%)Rt. Atrium (1.9-4.0cm)Asc. Aorta cm IVSd1.2 (0.7-1.1cm)RV (D) (1.8-2.4cm) PWd0.9 (0.7-1.1cm) Mitral Valve MitralMitral Stenosis E wave0.58m/sMV Mean GR.mmHg A wave0.76m/sMV Peak GR.mmHg E/A ratio0.82D MVAcm2 DECEL [id number] 1/2 Timems Aortic Valve Aortic ValveAortic Stenosis V10.81m/Angelique Mean GR.3mmHg V21.08m/Angelique Peak GR.5mmHg LVOT Diameter2.2 (1.8-2.4cm)Doppler AVA2.85cm2 Tricuspid Valve TR Velocity2.19m/s [id number] Other Information Quality : Technically LimitedRhythm : Technically limited study due to body habitus and breathing. Conclusion Moderately reduced left ventricular systolic function estimate ejection fraction 40% in a global [facility] ion. There is a grade 1 diastolic function. Normal right ventricular size and dimension. Normal right ventricular systolic function. Normal biatrial size and dimension. Normal aortic valve structure and function. Normal mitral valve structure and function. Normal tricuspid valve structure and function. The pulmonary valve is grossly normal. No pericardial fusion.
[2024-06-20] MEDS: MAGNESIUM SULFATE 1GM/100ML 100 ML IV ONE (18:00)
[2024-06-20] MEDS: GLUCAGON EMERG KIT 1mg/1ml IV ONE (19:02)
[2024-06-20] MEDS: ATORVASTATIN 20 MG TAB PO SCH (22:24)
[2024-06-21] VITALS (8 sets, daily range): BP systolic 107–128; BP diastolic 58–79; PULSE 61–94; RESP 14–18; TEMP 98–99.2; O2SAT 96–99
[2024-06-21 07:41] LABS: Basophils # (auto) 0 10 ^3/uL (0-0.2); Basophils % (auto) 0.5 % (0.0-2.0); Eosinophils # (auto) 0.1 10 ^3/uL (0-0.8); Eosinophils % (auto) 0.8 % (0.0-7.0); Hematocrit 46.3 % (41.0-53.0); Hemoglobin 15.2 g/dL (13.5-17.5); Lymphocytes # (auto) 1.9 10 ^3/uL (0.4-5.4); Lymphocytes % (auto) 22.8 % (10.0-50.0); Mean Corpuscular Hemoglobin 30.1 pg (28.0-32.0); Mean Corpuscular Hgb Conc. 32.9 g/dL (32.0-36.0); Mean Corpuscular Volume 91.6 fL (80.0-100.0); Monocytes # (auto) 0.8 10 ^3/uL (0-1.3); Neutrophils # (auto) 5.5 10 ^3/uL (1.6-8.6); Neutrophils % (auto) 65.9 % (37.0-80.0); Nucleated Red Blood Cells % 0.1 %; Platelet Count (auto) 241 10^3/uL (140-450); Red Blood Cells 5.05 10^6/uL (4.5-5.90); Red Cell Distribution Width 14.5 % (11.8-14.3); White Blood Cell 8.3 10^3/uL (4.4-10.8)
[2024-06-21 07:44] LABS: Chloride 106 mmol/L (98-107); Potassium 3.8 mmol/L (3.5-5.1); Sodium 141 mmol/L (136-145)
[2024-06-21 07:45] LABS: Anion Gap 10 (5-15); Calcium 10.1 mg/dL (8.7-10.4); Carbon Dioxide 25 mmol/L (20-31)
[2024-06-21 07:50] LABS: BUN/Creatinine Ratio 16.7 (10.0-20.0); Blood Urea Nitrogen 17 mg/dL (9-23); Glucose 68 mg/dL (74-106)
[2024-06-21 07:51] LABS: Magnesium 2.1 mg/dL (1.6-2.6)
--- NOTE | 2024-06-21 09:23 | DVHPN2 ---
Reviewed: Care Plan, H&P, Labs, Medications, Previous Orders, Radiology Changes from previous H/P or p: No Changes Eyes: No Pain, No Vision change, No Conjunctivae inflammation, No Eyelid inflammation, No Other, No Redness ENT: No Ear pain, No Ear discharge, No Nose pain, No Nose discharge, No Nose congestion, No Mouth pain, No Mouth swelling, No Throat pain, No Throat swelling, No Other Cardiovascular: No Chest Pain, No Palpitations, No Orthopnea, No Paroxysmal Noc. Dyspnea, No Edema, No Lt Headedness, No Other Respiratory: No Cough, No Dry; Shortness of breath; No SOB with excertion, No Wheezing, No Hemoptysis, No Pleuritic Pain, No Sputum, No Other Gastrointestinal: No Nausea, No Vomiting, No Abdominal Pain, No Diarrhea, No Constipation, No Melena, No Hematochezia, No Other Genitourinary: Dysuria; No Frequency, No Incontinence, No Hematuria, No Retention, No Other Musculoskeletal: No other, No neck pain, No shoulder pain, No arm pain, No back pain, No hand pain, No leg pain, No foot pain Skin: No Rash, No Lesions, No Jaundice, No Bruising, No Other Objective Vitals Vital Signs Date Time Temp Pulse Resp B/P (MAP) Pulse Ox O2 Delivery O2 Flow Rate FiO2 06/21/24 08:08 98.0 86 16 128/77 (94) 99 98.0 06/21/24 08:00 Room Air* 0 21 Intake/Output Intake and Output 06/21/24 07:00 Intake Total 1040 ml Output Total 2475 ml Balance -1435 ml Intake Oral 1040 ml Output Urine Total 2475 ml # Bowel Movements 1 Medications Current Medications Medications Dose Ordered Sig/Duy Route Start Time Stop Time Status Last Admin Dose Admin Piperacillin Sod/ Tazobactam Sod 100 ml @ 25 mls/hr Q8HR IV 06/19/24 22:00 06/21/24 06:16 25 MLS/HR Clopidogrel Bisulfate 75 mg DAILY PO 06/20/24 10:00 06/20/24 10:15 75 MG Diagnostic Test (Pha) 1 strip ACHS 06/19/24 17:00 06/21/24 06:16 1 STRIP Insulin Human Regular HS SC 06/19/24 22:00 06/20/24 22:38 8 UNITS Insulin Human Regular AC SC 06/19/24 17:00 06/20/24 11:59 9 UNITS Dextrose 50 ml UD PRN IV 06/19/24 15:30 Acetaminophen/ Hydrocodone Bitart 1 tab Q4HP PRN PO 06/19/24 15:30 06/19/24 15:49 1 TAB Ondansetron HCl 4 mg Q4HP PRN IV 06/19/24 15:30 Docusate Sodium 100 mg BIDPRN PRN PO 06/19/24 15:30 Acetaminophen 650 mg Q6HP PRN PO 06/19/24 15:30 Sodium Chloride 1,000 ml @ 50 mls/hr Q20H IV 06/19/24 15:30 06/21/24 07:32 50 MLS/HR Morphine Sulfate 2 mg Q30M PRN IV 06/19/24 18:15 Nitroglycerin 0.4 mg Q5MINP PRN SL 06/19/24 18:15 Atorvastatin Calcium 40 mg HS PO 06/20/24 22:00 06/20/24 22:24 40 MG Enoxaparin Sodium 40 mg DAILY SC 06/21/24 10:00 Laboratory Results Laboratory Tests 06/21/24 05:58 Chemistry Test 06/21/24 05:58 Calcium Level 10.1 mg/dL (8.7-10.4) Magnesium Level 2.1 mg/dL (1.6-2.6) Urinalysis Test 06/19/24 13:20 Urine Color Light-yellow (Yellow) Urine Clarity Clear (Clear) Urine pH 6.0 (5.0-9.0) Urine Specific [place] 1.013 (1.001-1.035) Urine Protein Negative (Negative) Urine Ketones Negative (Negative) Urine Blood Negative /uL (Negative) Urine Nitrite Negative (Negative) Urine Bilirubin Negative (Negative) Urine Urobilinogen Normal mg/dL (Negative) Urine Leukocyte Esterase 1+ /uL (Negative) Urine RBC 3 /hpf (0 - 3) Urine WBC 2 /hpf (0 - 3) Urine Squamous Epithelial Cells Few /hpf (<5) Urine Bacteria None seen /hpf (None Seen) Urine Glucose 4+ mg/dL (Normal) H Microbiology Microbiology Date/Time Source Procedure Growth Status 06/19/24 13:20 Voided Urine Urine Culture - Preliminary Resulted 06/19/24 10:36 Blood Blood Culture - Preliminary NO GROWTH AFTER 24 HOURS OF INCUBATION. 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 cardiology consult appreciated History of Coronary artery disease status post triple-vessel CABG, 2014 Rule out structural heart disease, echocardiogram 40 % ejection fraction Hypertension Dyslipidemia HX of CVA Oaw-imibtvl-vlqerstvt diabetes mellitus Urinary retention CT head negative CT abdomen pelvis without contrast negative Blood cultures negative Urine cultures negative Time Spent 55 minutes Patient is full code Advanced care planning time 20 minutes Patient is hospice revoked Plan discussed with: Patient Date of Service: Jun 21, 2024 Billing Provider: KAMALJIT WEBB MD Common Visit Codes: [id number] INP/OBS CARE(HIGH) KAMALJIT WEBB MD Jun 21, 2024 09:23
[2024-06-21] MEDS: ENOXAPARIN SOD 40 MG/0.4 ML SYRINGE SC SCH (09:53)
[2024-06-21] MEDS ORDERED: ENOXAPARIN SOD 30 MG/0.3 ML SYRINGE SC SCH (10:00)
--- NOTE | 2024-06-21 10:47 | DVH ---
BLADDER ULTRASOUND CLINICAL HISTORY: Acute urinary retention ruled out enlarged prostate TECHNIQUE: Multiple transabdominal ultrasound images of the bladder were obtained. COMPARISON: None FINDINGS: There is a Campbell catheter within the bladder which is decompressed limiting evaluation. There is part ial visualization of the prostate gland which measures 0.0 x 2.0 x 2.6 cm. There is no obvious free f luid in the pelvis. IMPRESSION: 1. Limited evaluation decompressed bladder with Campbell catheter. HS:Y
--- NOTE | 2024-06-21 12:19 | DVHPN2 ---
Consult Progress Note Subjective Other Systems: Patient now in normal sinus rhythm on radiation monitor. Patient denies any cardiac symptoms at time of assessment. Objective vital signs Vital Sign Date Time Temp Pulse Resp B/P (MAP) Pulse Ox O2 Delivery O2 Flow Rate FiO2 06/21/24 08:08 98.0 86 16 128/77 (94) 99 98.0 06/21/24 08:00 Room Air* 0 21 Total Intake and Output 06/20/24 06/20/24 06/21/24 15:00 23:00 07:00 Intake Total 800 ml 240 ml Output Total 1200 ml 900 ml 375 ml Balance -1200 ml -100 ml -135 ml medications Current Medications Medications Dose Ordered Sig/Duy Route Start Time Stop Time Status Last Admin Dose Admin Piperacillin Sod/ Tazobactam Sod 100 ml @ 25 mls/hr Q8HR IV 06/19/24 22:00 06/21/24 06:16 25 MLS/HR Clopidogrel Bisulfate 75 mg DAILY PO 06/20/24 10:00 06/21/24 09:53 75 MG Diagnostic Test (Pha) 1 strip ACHS 06/19/24 17:00 06/21/24 11:20 1 STRIP Insulin Human Regular HS SC 06/19/24 22:00 06/20/24 22:38 8 UNITS Insulin Human Regular AC SC 06/19/24 17:00 06/21/24 12:02 9 UNITS Dextrose 50 ml UD PRN IV 06/19/24 15:30 Acetaminophen/ Hydrocodone Bitart 1 tab Q4HP PRN PO 06/19/24 15:30 06/19/24 15:49 1 TAB Ondansetron HCl 4 mg Q4HP PRN IV 06/19/24 15:30 Docusate Sodium 100 mg BIDPRN PRN PO 06/19/24 15:30 Acetaminophen 650 mg Q6HP PRN PO 06/19/24 15:30 Sodium Chloride 1,000 ml @ 50 mls/hr Q20H IV 06/19/24 15:30 06/21/24 07:32 50 MLS/HR Morphine Sulfate 2 mg Q30M PRN IV 06/19/24 18:15 Nitroglycerin 0.4 mg Q5MINP PRN SL 06/19/24 18:15 Atorvastatin Calcium 40 mg HS PO 06/20/24 22:00 06/20/24 22:24 40 MG Enoxaparin Sodium 40 mg DAILY SC 06/21/24 10:00 06/21/24 09:53 40 MG Examination: GENERAL:Normal, LUNGS:Normal, CVS:Normal, NEURO:Normal laboratory and microbiology Laboratory Tests 06/21/24 05:58 Test 06/21/24 05:58 Range/Units Serum Glucose 68 L 74-106 mg/dL Problem List/Assessment/Plan Problem List/Assessment/Plan Syncope and collapse 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 Julian) Case discussed and reviewed with Dr. Julian. Today, the patient is back in normal sinus rhythm with PAC's, no episodes of pauses or AV blocks. Transthoracic echocardiogram reveals EF 40%. We will initiate GDMT for CHF as tolerated. Maintain strict intake and output, daily weights, maintain fluid restriction. It was highly suspected the patient had a beta-dominga induced bradycardia and hypotension when the patient was taking recently prescribed carvedilol 25 mg on 06/15/2024. We will instead initiate a low-dose metoprolol this time. Continue single antiplatelet therapy and lipid-lowering agent. Keep patient on continuous radiation monitor and notify cardio team immediately for any ECG changes. Thank you for allowing us to care for this patient. Please call with any questions or concerns. This medical document was created using an electronic medical record system with voice recognition software and computerized dictation system. Although this document has been carefully reviewed, there might still be some phonetic and typographical errors. Occasional wrong-word or ``sound-alike substitutions may have occurred due to the inherent limitations of voice recognition software. These areas are purely typographical due to imperfections of the software programs and do not reflect any compromise in the patient's medical care. Please read the chart carefully and recognize, using context, where these substitutions have occurred. Plan discussed with: Patient Date of Service: Jun 21, 2024 Billing Provider: SHANA JULIAN MD Common Visit Codes: [id number] INP/OBS CARE(HIGH) KYLIE MILLER [employer] Jun 21, 2024 12:19
[2024-06-21] MEDS: SACUBITRIL-VALSARTAN 24mg/26mg TAB PO SCH (22:30)
[2024-06-21] MEDS: METOPROLOL TARTRATE 25 MG TAB PO SCH (22:31)
[2024-06-22] VITALS (8 sets, daily range): BP systolic 106–138; BP diastolic 61–85; PULSE 79–111; RESP 13–20; TEMP 98.4–99.5; O2SAT 95–98
[2024-06-22] MEDS: PIPERACILLIN-TAZOB 3.375GM 100 ML IV ONE (06:23)
[2024-06-22 06:42] LABS: Basophils # (auto) 0 10 ^3/uL (0-0.2); Basophils % (auto) 0.4 % (0.0-2.0); Eosinophils # (auto) 0.1 10 ^3/uL (0-0.8); Eosinophils % (auto) 1.2 % (0.0-7.0); Hematocrit 45.5 % (41.0-53.0); Hemoglobin 14.8 g/dL (13.5-17.5); Lymphocytes # (auto) 2.7 10 ^3/uL (0.4-5.4); Lymphocytes % (auto) 29.5 % (10.0-50.0); Mean Corpuscular Hemoglobin 29.9 pg (28.0-32.0); Mean Corpuscular Hgb Conc. 32.6 g/dL (32.0-36.0); Mean Corpuscular Volume 91.8 fL (80.0-100.0); Monocytes % (auto) 10.6 % (0.0-12.0); Neutrophils # (auto) 5.3 10 ^3/uL (1.6-8.6); Neutrophils % (auto) 58.3 % (37.0-80.0); Nucleated Red Blood Cells % 0.1 %; Platelet Count (auto) 241 10^3/uL (140-450); Red Blood Cells 4.96 10^6/uL (4.5-5.90); Red Cell Distribution Width 14.6 % (11.8-14.3)
[2024-06-22 06:50] LABS: Anion Gap 9 (5-15); Calcium 9.7 mg/dL (8.7-10.4); Carbon Dioxide 23 mmol/L (20-31); Potassium 3.8 mmol/L (3.5-5.1); Sodium 141 mmol/L (136-145)
[2024-06-22 06:52] LABS: Chloride 109 mmol/L (98-107)
[2024-06-22 06:56] LABS: Blood Urea Nitrogen 15 mg/dL (9-23)
[2024-06-22 06:58] LABS: Glucose 111 mg/dL (74-106)
[2024-06-22 08:06] LABS: PSA Free 1.45 ng/mL; Prostate Specific Antigen 8.2 ng/mL (0.0-4.0)
[2024-06-22] MEDS: FLUCONAZOLE 200MG/100ML 100 ML IV SCH (09:55)
[2024-06-22] MEDS: EMPAGLIFLOZIN 10 MG TAB PO SCH (09:56)
[2024-06-22] MEDS: SPIRONOLACTONE 25 MG TAB PO SCH (09:56)
--- NOTE | 2024-06-22 09:58 | DVHPN2 ---
Reviewed: Care Plan, H&P, Labs, Medications, Previous Orders, Radiology Changes from previous H/P or p: No Changes Eyes: No Pain, No Vision change, No Conjunctivae inflammation, No Eyelid inflammation, No Other, No Redness ENT: No Ear pain, No Ear discharge, No Nose pain, No Nose discharge, No Nose congestion, No Mouth pain, No Mouth swelling, No Throat pain, No Throat swelling, No Other Cardiovascular: No Chest Pain, No Palpitations, No Orthopnea, No Paroxysmal Noc. Dyspnea, No Edema, No Lt Headedness, No Other Respiratory: No Cough, No Dry; Shortness of breath; No SOB with excertion, No Wheezing, No Hemoptysis, No Pleuritic Pain, No Sputum, No Other Gastrointestinal: No Nausea, No Vomiting, No Abdominal Pain, No Diarrhea, No Constipation, No Melena, No Hematochezia, No Other Genitourinary: Dysuria; No Frequency, No Incontinence, No Hematuria, No Retention, No Other Musculoskeletal: No other, No neck pain, No shoulder pain, No arm pain, No back pain, No hand pain, No leg pain, No foot pain Skin: No Rash, No Lesions, No Jaundice, No Bruising, No Other Objective Vitals Vital Signs Date Time Temp Pulse Resp B/P (MAP) Pulse Ox O2 Delivery O2 Flow Rate FiO2 06/22/24 08:28 98.6 101 20 122/85 (97) 97 98.6 06/21/24 20:00 Room Air* 0 21 Intake/Output Intake and Output 06/22/24 07:00 Intake Total 980 ml Output Total 1250 ml Balance -270 ml Intake Oral 880 ml IV Total 100 ml Output Urine Total 1250 ml # Bowel Movements 3 Medications Current Medications Medications Dose Ordered Sig/Duy Route Start Time Stop Time Status Last Admin Dose Admin Piperacillin Sod/ Tazobactam Sod 100 ml @ 25 mls/hr Q8HR IV 06/19/24 22:00 06/22/24 06:24 25 MLS/HR Clopidogrel Bisulfate 75 mg DAILY PO 06/20/24 10:00 06/21/24 09:53 75 MG Diagnostic Test (Pha) 1 strip ACHS 06/19/24 17:00 06/22/24 06:24 1 STRIP Insulin Human Regular HS SC 06/19/24 22:00 06/21/24 22:45 4 UNITS Insulin Human Regular AC SC 06/19/24 17:00 06/21/24 17:00 3 UNITS Dextrose 50 ml UD PRN IV 06/19/24 15:30 Acetaminophen/ Hydrocodone Bitart 1 tab Q4HP PRN PO 06/19/24 15:30 06/19/24 15:49 1 TAB Ondansetron HCl 4 mg Q4HP PRN IV 06/19/24 15:30 Docusate Sodium 100 mg BIDPRN PRN PO 06/19/24 15:30 Acetaminophen 650 mg Q6HP PRN PO 06/19/24 15:30 Sodium Chloride 1,000 ml @ 50 mls/hr Q20H IV 06/19/24 15:30 06/21/24 07:32 50 MLS/HR Morphine Sulfate 2 mg Q30M PRN IV 06/19/24 18:15 Nitroglycerin 0.4 mg Q5MINP PRN SL 06/19/24 18:15 Atorvastatin Calcium 40 mg HS PO 06/20/24 22:00 06/21/24 22:30 40 MG Enoxaparin Sodium 40 mg DAILY SC 06/21/24 10:00 06/21/24 09:53 40 MG Metoprolol Tartrate 12.5 mg BID PO 06/21/24 22:00 06/21/24 22:31 12.5 MG Empaglifozin 10 mg DAILY PO 06/22/24 10:00 Spironolactone 25 mg DAILY PO 06/22/24 10:00 Sacubitril/ Valsartan 0.5 tab BID PO 06/21/24 22:00 06/21/24 22:30 0.5 TAB Laboratory Results Laboratory Tests 06/22/24 05:23 Chemistry Test 06/22/24 05:23 Calcium Level 9.7 mg/dL (8.7-10.4) Magnesium Level 2.0 mg/dL (1.6-2.6) Urinalysis Test 06/19/24 13:20 Urine Color Light-yellow (Yellow) Urine Clarity Clear (Clear) Urine pH 6.0 (5.0-9.0) Urine Specific [place] 1.013 (1.001-1.035) Urine Protein Negative (Negative) Urine Ketones Negative (Negative) Urine Blood Negative /uL (Negative) Urine Nitrite Negative (Negative) Urine Bilirubin Negative (Negative) Urine Urobilinogen Normal mg/dL (Negative) Urine Leukocyte Esterase 1+ /uL (Negative) Urine RBC 3 /hpf (0 - 3) Urine WBC 2 /hpf (0 - 3) Urine Squamous Epithelial Cells Few /hpf (<5) Urine Bacteria None seen /hpf (None Seen) Urine Glucose 4+ mg/dL (Normal) H Microbiology Microbiology Date/Time Source Procedure Growth Status 06/19/24 13:20 Voided Urine Urine Culture - Preliminary Resulted 06/19/24 10:36 Blood Blood Culture - Preliminary NO GROWTH AFTER 48 HOURS OF INCUBATION. 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 cardiology consult appreciated Coreg discontinued, placed on low-dose of metoprolol History of Coronary artery disease status post triple-vessel CABG, 2014 Rule out structural heart disease, echocardiogram 40 % ejection fraction Possible community-acquired pneumonia: Zosyn Hypertension Dyslipidemia HX of CVA Poh-zndxzek-smzhvglci diabetes mellitus Urinary retention: Bladder ultrasound normal History of BPH PSA is slightly high 8.0, urology consult Yeast in the urine: Diflucan [address] head negative CT abdomen pelvis without contrast negative Blood cultures negative Time Spent 55 minutes Patient is full code Advanced care planning time 20 minutes Patient is hospice revoked Plan discussed with: Patient My Orders Orders - KAMALJIT WEBB MD Procedure Category Date Status Time Bladder US 06/21/24 Resulted 10:04 Fluconazole Ivpb PHA 06/22/24 Transmitted Diflucan 10:00 Date of Service: Jun 22, 2024 Billing Provider: KAMALJIT WEBB MD Common Visit Codes: [id number] INP/OBS CARE(HIGH) KAMALJIT WEBB MD Jun 22, 2024 09:58
--- NOTE | 2024-06-22 12:40 | DVHINCON2 ---
Date of service: Jun 22, 2024 Referring Physician Ray Salvador MD Reason for Consultation Urinary retention PSA elevation of 8.0 History of Present Illness 74-year-old male with past medical history of DM, hyperlipidemia, OH, and hypertension who presented to [facility] ED for evaluation of generalized weakness. Patient reports symptoms progressively get worse that EMS were called. When EMS arrived at the scene, patient was hypotensive with blood pressure at 80/40, heart rate 50, and severe weakness. Patient was given IV fluid 1 L of NS, 0.02 mg of epi with improved vital signs at rate 72, systolic blood pressure at [address] to our facility ED. patient was seen and evaluated in the ED, laboratory data shows WBC 12.3, platelets 207, sodium 140, potassium 4.9, BUN 21, creatinine 1.04, GFR 76, glucose 171, troponin 48, lactic acid 2.9, blood pressure 79/42 trending up to 113/64, heart rate 47 trending up to 88, temperature 97.6, O2 saturation 96% on oxygen. Chest x-ray revealing bilateral interstitial prominence which may reflect pulmonary congestion, urinalysis positive for urinary tract infection. Patient was started on IV antibiotic regimen Zosyn, please see medication orders section in the computer. CT scan shows distended bladder and Campbell catheter is in place confirmed on ultrasound. Patient states that his urine was going everywhere. He he has been experiencing nocturia, frequency and urgency. Apparently the catheter placement was somewhat difficult in the emergency room on this admission. Past Medical History DM, High Lipids, HTN, OH Past Surgical History CABG, Tonsillectomy s/p TURP by Dr. León 4 years ago Family History: Diabetes mellitus G8 MOTHER, Onset:40's - 50 G8 FATHER Hypertension G8 MOTHER G8 FATHER Allergies: Coded Allergies: Ibuprofen (Verified Allergy, Severe, 03/09/17) Naproxen (Verified Allergy, Severe, 03/09/17) Home Meds No Active Prescriptions or Reported Meds Current Medications Current Medications Medications (Trade) Dose Ordered Sig/Duy Route PRN Reason Start Time Stop Time Status Last Admin Metoprolol Tartrate (Lopressor Tablet) 12.5 mg BID PO 06/21/24 22:00 06/22/24 09:57 Empaglifozin (Jardiance) 10 mg DAILY PO 06/22/24 10:00 06/22/24 09:56 Spironolactone (Aldactone) 25 mg DAILY PO 06/22/24 10:00 06/22/24 09:56 Sacubitril/ Valsartan (Entresto 24-26 Mg tab) 0.5 tab BID PO 06/21/24 22:00 06/22/24 09:57 Fluconazole 100 ml @ 100 mls/hr DAILY IV 06/22/24 10:00 06/22/24 09:55 Review of Systems Constitutional: Yes: Weakness; No: Fever, Chills, Sweats, Malaise, Other Eyes: No: Pain, Vision change, Conjunctivae inflammation, Eyelid inflammation, Other, Redness ENT: No: Ear pain, Ear discharge, Nose pain, Nose discharge, Nose congestion, Mouth pain, Mouth swelling, Throat pain, Throat swelling, Other Respiratory: Shortness of breath; No: Cough, Dry, SOB with excertion, Wheezing, Hemoptysis, Pleuritic Pain, Sputum, Wheezing, Other Cardiovascular: No: Chest Pain, Palpitations, Orthopnea, Paroxysmal Noc. Dyspnea, Edema, Lt Headedness, Other Gastrointestinal: No: Nausea, Vomiting, Abdominal Pain, Diarrhea, Constipation, Melena, Hematochezia, Other Genitourinary: Dysuria; No Frequency, No Incontinence, No Hematuria, No Retention, No Other Musculoskeletal: No: other, neck pain, shoulder pain, arm pain, back pain, hand pain, leg pain, foot pain Skin: No: Rash, Lesions, Jaundice, Bruising, Other Neurological: Weakness; No: Numbness, Incoordination, Change in speech, Confusion, Seizures, Other Allergies: Coded Allergies: Ibuprofen (Verified Allergy, Severe, 03/09/17) Naproxen (Verified Allergy, Severe, 03/09/17) Medications Current Medications Medications Dose Ordered Sig/Duy Route Start Time Stop Time Status Last Admin Dose Admin Piperacillin Sod/ Tazobactam Sod 100 ml @ 25 mls/hr Q8HR IV 06/19/24 22:00 Clopidogrel Bisulfate 75 mg DAILY PO 06/20/24 10:00 Diagnostic Test (Pha) 1 strip ACHS 06/19/24 17:00 06/19/24 17:15 1 STRIP Insulin Human Regular HS SC 06/19/24 22:00 Insulin Human Regular AC SC 06/19/24 17:00 06/19/24 17:21 3 UNITS Dextrose 50 ml UD PRN IV 06/19/24 15:30 Acetaminophen/ Hydrocodone Bitart 1 tab Q4HP PRN PO 06/19/24 15:30 06/19/24 15:49 1 TAB Ondansetron HCl 4 mg Q4HP PRN IV 06/19/24 15:30 Docusate Sodium 100 mg BIDPRN PRN PO 06/19/24 15:30 Acetaminophen 650 mg Q6HP PRN PO 06/19/24 15:30 Sodium Chloride 1,000 ml @ 50 mls/hr Q20H IV 06/19/24 15:30 Vital Signs Vital Signs Date Time Temp Pulse Resp B/P (MAP) Pulse Ox O2 Delivery O2 Flow Rate FiO2 06/22/24 11:57 99.5 82 19 111/65 (80) 95 99.5 06/21/24 20:00 Room Air* 0 21 Physical Exam Vital Signs Date Time Temp Pulse Resp B/P (MAP) Pulse Ox O2 Delivery O2 Flow Rate FiO2 06/19/24 17:43 79 06/19/24 17:15 18 121/77 (92) 93 06/19/24 10:24 Room Air* 0 21 06/19/24 10:24 97.5 97.5 General Appearance: Alert, Oriented X3, Cooperative, No acute distress HEENT: Atraumatic, PERRLA, EOMI, Mucous membr. moist/pink Respiratory: Normal air movement, Other (Congestion) Cardiovascular: Regular rate, Normal S1, Normal S2, No murmurs Abdominal: Normal bowel sounds, Soft, No tenderness, No hepatospenomegaly, No masses Extremities: No clubbing, No cyanosis, No edema, Normal pulses, No tenderness/swelling Skin: No rashes, No breakdown, No significant lesion Neuro: Normal speech, Normal tone, Sensation intact, Cranial nerves 3-12 NL, Reflexes 2+, Other (Generalized weakness) Psych/Mental Status: Mental status NL, Mood NL Labs/Diagnostic Data Labs Test 06/22/24 06:28 06/22/24 05:23 06/21/24 05:58 06/20/24 05:20 Range/Units POC Glucose 130 H 70-106 mg/dl White Blood Count 9.0 4.4-10.8 10^3/uL Red Blood Count 4.96 4.5-5.90 10^6/uL Hemoglobin 14.8 13.5-17.5 g/dL Hematocrit 45.5 41.0-53.0 % Mean Corpuscular Volume 91.8 80.0-100.0 fL Mean Corpuscular Hemoglobin 29.9 28.0-32.0 pg Mean Corpuscular Hemoglobin Concent 32.6 32.0-36.0 g/dL Red Cell Distribution Width 14.6 H 11.8-14.3 % Platelet Count 241 140-450 10^3/uL Mean Platelet Volume 8.9 6.9-10.8 fL Neutrophils (%) (Auto) 58.3 37.0-80.0 % Lymphocytes (%) (Auto) 29.5 10.0-50.0 % Monocytes (%) (Auto) 10.6 0.0-12.0 % Eosinophils (%) (Auto) 1.2 0.0-7.0 % Basophils (%) (Auto) 0.4 0.0-2.0 % Neutrophils # (Auto) 5.3 1.6-8.6 10 ^3/uL Lymphocytes # (Auto) 2.7 0.4-5.4 10 ^3/uL Monocytes # (Auto) 1.0 0-1.3 10 ^3/uL Eosinophils # (Auto) 0.1 0-0.8 10 ^3/uL Basophils # (Auto) 0 0-0.2 10 ^3/uL Nucleated Red Blood Cells 0.1 % Sodium Level 141 136-145 mmol/L Potassium Level 3.8 3.5-5.1 mmol/L Chloride Level 109 H 98-107 mmol/L Carbon Dioxide Level 23 20-31 mmol/L Anion Gap 9 5-15 Blood Urea Nitrogen 15 9-23 mg/dL Creatinine 1.00 0.700-1.30 mg/dL Glomerular Filtration Rate Calc 80 >90 mL/min BUN/Creatinine Ratio 15.0 10.0-20.0 Serum Glucose 111 H 74-106 mg/dL Calcium Level 9.7 8.7-10.4 mg/dL Magnesium Level 2.0 1.6-2.6 mg/dL Free Prostate Specific Antigen 1.45 N/A ng/mL Percent Free Prostate Specific Ag 17.7 . % Prostate Specific Antigen Total 8.2 H 0.0-4.0 ng/mL Hemoglobin A1c 7.4 H <5.7 % A1C Total Bilirubin 0.4 0.2-1.0 mg/dL Aspartate Amino Transferase (AST) 19 13-40 U/L Alanine Aminotransferase (ALT) 19 7-40 U/L Alkaline Phosphatase 67 46-116 U/L Total Protein 6.8 5.7-8.2 g/dL Albumin 4.0 3.2-4.8 g/dL Triglycerides Level 88 < 150 mg/dL Cholesterol Level 117 < 200 mg/dL LDL Cholesterol 47 < 100 mg/dL HDL Cholesterol 54 40-59 mg/dL Thyroid Stimulating Hormone (TSH) 0.39 L 0.55-4.78 uIU/mL Test 06/19/24 13:20 06/19/24 12:42 06/19/24 10:36 Range/Units Urine Color Light-yellow Yellow Urine Clarity Clear Clear Urine pH 6.0 5.0-9.0 Urine Specific [place] 1.013 1.001-1.035 Urine Protein Negative Negative Urine Ketones Negative Negative Urine Blood Negative Negative /uL Urine Nitrite Negative Negative Urine Bilirubin Negative Negative Urine Urobilinogen Normal Negative mg/dL Urine Leukocyte Esterase 1+ Negative /uL Urine RBC 3 0 - 3 /hpf Urine WBC 2 0 - 3 /hpf Urine Squamous Epithelial Cells Few <5 /hpf Urine Bacteria None seen None Seen /hpf Urine Glucose 4+ H Normal mg/dL Lactic Acid Level 2.9 *H 0.4-2.0 mmol/L Troponin I High Sensitivity 49 </=54 ng/L D-Dimer, Quantitative 0.42 0.0-0.49 mg/L FEU B-Type Natriuretic Peptide 71.11 0-100 pg/mL Microbiology Date/Time Source Procedure Growth Status 06/19/24 13:20 Voided Urine Urine Culture - Preliminary Resulted 06/19/24 10:36 Blood Blood Culture - Preliminary NO GROWTH AFTER 72 HOURS OF INCUBATION. Resulted Assessment Urinary retention BPH-status post TURP, suspect possible stricture disease Elevated PSA 8.0 Plan/Recommendation Keep Campbell to gravity drainage since the catheterization was difficult Outpatient cystoscopy with possible DVIU, TURP versus TURBNC and transrectal ultrasound-guided prostate needle biopsy to be arranged Plan discussed with: Patient, Other YOVANY CURRY MD Jun 22, 2024 12:40
--- NOTE | 2024-06-22 15:09 | DVHPN2 ---
Consult Progress Note Subjective Other Systems: Patient in normal sinus rhythm with intermittent PACs on cardiac cath lab radiology technologist Objective vital signs Vital Sign Date Time Temp Pulse Resp B/P (MAP) Pulse Ox O2 Delivery O2 Flow Rate FiO2 06/22/24 11:57 99.5 82 19 111/65 (80) 95 99.5 06/21/24 20:00 Room Air* 0 21 Total Intake and Output 06/21/24 06/21/24 06/22/24 15:00 23:00 07:00 Intake Total 640 ml 340 ml Output Total 500 ml 750 ml Balance 140 ml -410 ml medications Current Medications Medications Dose Ordered Sig/Duy Route Start Time Stop Time Status Last Admin Dose Admin Piperacillin Sod/ Tazobactam Sod 100 ml @ 25 mls/hr Q8HR IV 06/19/24 22:00 06/22/24 06:24 25 MLS/HR Clopidogrel Bisulfate 75 mg DAILY PO 06/20/24 10:00 06/22/24 09:56 75 MG Diagnostic Test (Pha) 1 strip ACHS 06/19/24 17:00 06/22/24 12:06 1 STRIP Insulin Human Regular HS SC 06/19/24 22:00 06/21/24 22:45 4 UNITS Insulin Human Regular AC SC 06/19/24 17:00 06/21/24 17:00 3 UNITS Dextrose 50 ml UD PRN IV 06/19/24 15:30 Acetaminophen/ Hydrocodone Bitart 1 tab Q4HP PRN PO 06/19/24 15:30 06/19/24 15:49 1 TAB Ondansetron HCl 4 mg Q4HP PRN IV 06/19/24 15:30 Docusate Sodium 100 mg BIDPRN PRN PO 06/19/24 15:30 Acetaminophen 650 mg Q6HP PRN PO 06/19/24 15:30 Sodium Chloride 1,000 ml @ 50 mls/hr Q20H IV 06/19/24 15:30 06/21/24 07:32 50 MLS/HR Morphine Sulfate 2 mg Q30M PRN IV 06/19/24 18:15 Nitroglycerin 0.4 mg Q5MINP PRN SL 06/19/24 18:15 Atorvastatin Calcium 40 mg HS PO 06/20/24 22:00 06/21/24 22:30 40 MG Enoxaparin Sodium 40 mg DAILY SC 06/21/24 10:00 12/19/24 09:55 40 MG Metoprolol Tartrate 12.5 mg BID PO 06/21/24 22:00 06/22/24 09:57 12.5 MG Empaglifozin 10 mg DAILY PO 06/22/24 10:00 06/22/24 09:56 10 MG Spironolactone 25 mg DAILY PO 06/22/24 10:00 06/22/24 09:56 25 MG Sacubitril/ Valsartan 0.5 tab BID PO 06/21/24 22:00 06/22/24 09:57 0.5 TAB Fluconazole 100 ml @ 100 mls/hr DAILY IV 06/22/24 10:00 06/22/24 09:55 100 MLS/HR Examination: GENERAL:Normal, LUNGS:Normal, CVS:Normal, NEURO:Normal laboratory and microbiology Laboratory Tests 06/22/24 05:23 Test 06/22/24 05:23 Range/Units Serum Glucose 111 H 74-106 mg/dL Problem List/Assessment/Plan Problem List/Assessment/Plan Syncope and collapse Likely beta-dominga induced bradycardia/hypotension, resolved Coronary artery disease status post triple-vessel CABG, 2014 Acute on chronic HFrEF, NYHA class II, newly diagnosed Hypertension Dyslipidemia HX of CVA Ovy-kdoccdx-njtkugfpo diabetes mellitus Urinary retention Plan/Recommendation (Dr. Julian) Case discussed and reviewed with Dr. Julian. Patient is back in normal sinus rhythm with PAC's, no episodes of pauses or AV blocks. Transthoracic echocardiogram reveals EF 40%. Continue GDMT for CHF as tolerated. Will stop Jardiance given preliminary urine culture showing yeast in urine. Maintain strict intake and output, daily weights, maintain fluid restriction. It was highly suspected the patient had a beta-dominga induced bradycardia and hypotension when the patient was taking recently prescribed carvedilol 25 mg on 06/15/2024. Coreg was stopped until patient was back in normal sinus rhythm. We initiated a low-dose metoprolol and the patient has tolerated well for over 24 hours. Continue single antiplatelet therapy and lipid-lowering agent. There is no further inpatient cardiac workup indicated at this time. Cardiology will sign off. Please reconsult if needed. Patient to follow up with Cardiology in the outpatient setting in 1-2 weeks post discharge. Thank you for allowing us to care for this patient. Please call with any questions or concerns. This medical document was created using an electronic medical record system with voice recognition software and computerized dictation system. Although this document has been carefully reviewed, there might still be some phonetic and typographical errors. Occasional wrong-word or ``sound-alike substitutions may have occurred due to the inherent limitations of voice recognition software. These areas are purely typographical due to imperfections of the software programs and do not reflect any compromise in the patient's medical care. Please read the chart carefully and recognize, using context, where these substitutions have occurred. Plan discussed with: Patient Date of Service: Jun 22, 2024 Billing Provider: SHANA JULIAN MD Common Visit Codes: [id number] INP/OBS CARE(HIGH) KYLIE MILLER [facility] Jun 22, 2024 15:09
[2024-06-23 01:00] VITALS: BP 104/63; PULSE 77; RESP 17; TEMP 98.1; O2SAT 97
[2024-06-23 05:00] VITALS: BP 118/67; PULSE 84; RESP 16; TEMP 97.9; O2SAT 98
[2024-06-23 08:00] VITALS: PULSE 111; PULSE 72
[2024-06-23 09:00] VITALS: BP 121/73; PULSE 79; RESP 18; TEMP 99.1; O2SAT 97
[2024-06-23] MEDS ORDERED: FLUC200T PO (10:44)
[2024-06-23] MEDS ORDERED: METO25TA5 PO (10:44)
[2024-06-23] MEDS ORDERED: SPIR25TA PO (10:44)
[2024-06-23] MEDS ORDERED: SACU1TAB PO (10:44)
--- NOTE | 2024-06-23 10:48 | DVHPN2 ---
Reviewed: Care Plan, H&P, Labs, Medications, Previous Orders, Radiology Changes from previous H/P or p: No Changes Eyes: No Pain, No Vision change, No Conjunctivae inflammation, No Eyelid inflammation, No Other, No Redness ENT: No Ear pain, No Ear discharge, No Nose pain, No Nose discharge, No Nose congestion, No Mouth pain, No Mouth swelling, No Throat pain, No Throat swelling, No Other Cardiovascular: No Chest Pain, No Palpitations, No Orthopnea, No Paroxysmal Noc. Dyspnea, No Edema, No Lt Headedness, No Other Respiratory: No Cough, No Dry; Shortness of breath; No SOB with excertion, No Wheezing, No Hemoptysis, No Pleuritic Pain, No Sputum, No Other Gastrointestinal: No Nausea, No Vomiting, No Abdominal Pain, No Diarrhea, No Constipation, No Melena, No Hematochezia, No Other Genitourinary: Dysuria; No Frequency, No Incontinence, No Hematuria, No Retention, No Other Musculoskeletal: No other, No neck pain, No shoulder pain, No arm pain, No back pain, No hand pain, No leg pain, No foot pain Skin: No Rash, No Lesions, No Jaundice, No Bruising, No Other Objective Vitals Vital Signs Date Time Temp Pulse Resp B/P (MAP) Pulse Ox O2 Delivery O2 Flow Rate FiO2 06/23/24 09:40 79 121/73 06/23/24 09:00 99.1 18 97 99.1 06/22/24 20:00 Room Air* 0 21 Intake/Output Intake and Output 06/23/24 07:00 Intake Total 1150 ml Output Total 1700 ml Balance -550 ml Intake Oral 950 ml IV Total 200 ml Output Urine Total 1700 ml # Bowel Movements 1 Medications Current Medications Medications Dose Ordered Sig/Duy Route Start Time Stop Time Status Last Admin Dose Admin Piperacillin Sod/ Tazobactam Sod 100 ml @ 25 mls/hr Q8HR IV 06/19/24 22:00 06/23/24 06:46 25 MLS/HR Clopidogrel Bisulfate 75 mg DAILY PO 06/20/24 10:00 06/23/24 09:39 75 MG Diagnostic Test (Pha) 1 strip ACHS 06/19/24 17:00 06/23/24 06:46 1 STRIP Insulin Human Regular HS SC 06/19/24 22:00 06/22/24 22:45 4 UNITS Insulin Human Regular AC SC 06/19/24 17:00 06/23/24 06:45 3 UNITS Dextrose 50 ml UD PRN IV 06/19/24 15:30 Acetaminophen/ Hydrocodone Bitart 1 tab Q4HP PRN PO 06/19/24 15:30 06/19/24 15:49 1 TAB Ondansetron HCl 4 mg Q4HP PRN IV 06/19/24 15:30 Docusate Sodium 100 mg BIDPRN PRN PO 06/19/24 15:30 Acetaminophen 650 mg Q6HP PRN PO 06/19/24 15:30 Sodium Chloride 1,000 ml @ 50 mls/hr Q20H IV 06/19/24 15:30 06/22/24 23:30 50 MLS/HR Morphine Sulfate 2 mg Q30M PRN IV 06/19/24 18:15 Nitroglycerin 0.4 mg Q5MINP PRN SL 06/19/24 18:15 Atorvastatin Calcium 40 mg HS PO 06/20/24 22:00 06/22/24 22:56 40 MG Enoxaparin Sodium 40 mg DAILY SC 06/21/24 10:00 06/23/24 09:39 40 MG Metoprolol Tartrate 12.5 mg BID PO 06/21/24 22:00 06/23/24 09:40 12.5 MG Spironolactone 25 mg DAILY PO 06/22/24 10:00 06/23/24 09:39 25 MG Sacubitril/ Valsartan 0.5 tab BID PO 06/21/24 22:00 06/23/24 09:40 0.5 TAB Fluconazole 100 ml @ 100 mls/hr DAILY IV 06/22/24 10:00 06/23/24 09:39 100 MLS/HR Laboratory Results Laboratory Tests 06/22/24 05:23 Urinalysis Test 06/19/24 13:20 Urine Color Light-yellow (Yellow) Urine Clarity Clear (Clear) Urine pH 6.0 (5.0-9.0) Urine Specific [place] 1.013 (1.001-1.035) Urine Protein Negative (Negative) Urine Ketones Negative (Negative) Urine Blood Negative /uL (Negative) Urine Nitrite Negative (Negative) Urine Bilirubin Negative (Negative) Urine Urobilinogen Normal mg/dL (Negative) Urine Leukocyte Esterase 1+ /uL (Negative) Urine RBC 3 /hpf (0 - 3) Urine WBC 2 /hpf (0 - 3) Urine Squamous Epithelial Cells Few /hpf (<5) Urine Bacteria None seen /hpf (None Seen) Urine Glucose 4+ mg/dL (Normal) H Microbiology Microbiology Date/Time Source Procedure Growth Status 06/19/24 13:20 Voided Urine Urine Culture - Preliminary Resulted 06/19/24 10:36 Blood Blood Culture - Preliminary NO GROWTH AFTER 72 HOURS OF INCUBATION. 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 cardiology consult appreciated Coreg discontinued, placed on low-dose of metoprolol History of Coronary artery disease status post triple-vessel CABG, 2014 Rule out structural heart disease, echocardiogram 40 % ejection fraction Possible community-acquired pneumonia: Zosyn Hypertension Dyslipidemia HX of CVA [id number]-[id number] diabetes mellitus Urinary retention: Bladder ultrasound normal Urinary retention BPH-status post TURP, suspect possible stricture disease Elevated PSA 8.[address] Delgado recommendation Outpatient cystoscopy with possible DVIU, TURP versus TURBNC and transrectal ultrasound-guided prostate needle biopsy to be arranged Yeast in the urine: Diflucan [address] head negative CT abdomen pelvis without contrast negative Blood cultures negative Time Spent 55 minutes Patient is full code Advanced care planning time 20 minutes Patient is hospice revoked Plan discussed with: Patient Date of Service: Jun 23, 2024 Billing Provider: KAMALJIT WEBB MD Common Visit Codes: [id number] INP/OBS CARE(HIGH) KAMALJIT WEBB MD Jun 23, 2024 10:48
--- NOTE | 2024-06-23 10:53 | DVHDS2 ---
Discharge Summary Date of Admission Jun 19, 2024 at 18:01 Date of Discharge: Jun 23, 2024 Admitting Diagnosis Syncope Wounds: None Labs/Diagnostic Data: Laboratory Results Test 06/23/24 05:48 06/22/24 05:23 06/21/24 05:58 06/20/24 05:20 POC Glucose 182 mg/dl (70-106) White Blood Count 9.0 10^3/uL (4.4-10.8) Red Blood Count 4.96 10^6/uL (4.5-5.90) Hemoglobin 14.8 g/dL (13.5-17.5) Hematocrit 45.5 % (41.0-53.0) Mean Corpuscular Volume 91.8 fL (80.0-100.0) Mean Corpuscular Hemoglobin 29.9 pg (28.0-32.0) Mean Corpuscular Hemoglobin Concent 32.6 g/dL (32.0-36.0) Red Cell Distribution Width 14.6 % (11.8-14.3) Platelet Count 241 10^3/uL (140-450) Mean Platelet Volume 8.9 fL (6.9-10.8) Neutrophils (%) (Auto) 58.3 % (37.0-80.0) Lymphocytes (%) (Auto) 29.5 % (10.0-50.0) Monocytes (%) (Auto) 10.6 % (0.0-12.0) Eosinophils (%) (Auto) 1.2 % (0.0-7.0) Basophils (%) (Auto) 0.4 % (0.0-2.0) Neutrophils # (Auto) 5.3 10 ^3/uL (1.6-8.6) Lymphocytes # (Auto) 2.7 10 ^3/uL (0.4-5.4) Monocytes # (Auto) 1.0 10 ^3/uL (0-1.3) Eosinophils # (Auto) 0.1 10 ^3/uL (0-0.8) Basophils # (Auto) 0 10 ^3/uL (0-0.2) Nucleated Red Blood Cells 0.1 % Sodium Level 141 mmol/L (136-145) Potassium Level 3.8 mmol/L (3.5-5.1) Chloride Level 109 mmol/L (98-107) Carbon Dioxide Level 23 mmol/L (20-31) Anion Gap 9 (5-15) Blood Urea Nitrogen 15 mg/dL (9-23) Creatinine 1.00 mg/dL (0.700-1.30) Glomerular Filtration Rate Calc 80 mL/min (>90) BUN/Creatinine Ratio 15.0 (10.0-20.0) Serum Glucose 111 mg/dL (74-106) Calcium Level 9.7 mg/dL (8.7-10.4) Magnesium Level 2.0 mg/dL (1.6-2.6) Free Prostate Specific Antigen 1.45 ng/mL (N/A) Percent Free Prostate Specific Ag 17.7 % (.) Prostate Specific Antigen Total 8.2 ng/mL (0.0-4.0) Hemoglobin A1c 7.4 % A1C (<5.7) Total Bilirubin 0.4 mg/dL (0.2-1.0) Aspartate Amino Transferase (AST) 19 U/L (13-40) Alanine Aminotransferase (ALT) 19 U/L (7-40) Alkaline Phosphatase 67 U/L (46-116) Total Protein 6.8 g/dL (5.7-8.2) Albumin 4.0 g/dL (3.2-4.8) Triglycerides Level 88 mg/dL (< 150) Cholesterol Level 117 mg/dL (< 200) LDL Cholesterol 47 mg/dL (< 100) HDL Cholesterol 54 mg/dL (40-59) Thyroid Stimulating Hormone (TSH) 0.39 uIU/mL (0.55-4.78) Test 06/19/24 13:20 06/19/24 12:42 06/19/24 10:36 Urine Color Light-yellow (Yellow) Urine Clarity Clear (Clear) Urine pH 6.0 (5.0-9.0) Urine Specific [place] 1.013 (1.001-1.035) Urine Protein Negative (Negative) Urine Ketones Negative (Negative) Urine Blood Negative /uL (Negative) Urine Nitrite Negative (Negative) Urine Bilirubin Negative (Negative) Urine Urobilinogen Normal mg/dL (Negative) Urine Leukocyte Esterase 1+ /uL (Negative) Urine RBC 3 /hpf (0 - 3) Urine WBC 2 /hpf (0 - 3) Urine Squamous Epithelial Cells Few /hpf (<5) Urine Bacteria None seen /hpf (None Seen) Urine Glucose 4+ mg/dL (Normal) Lactic Acid Level 2.9 mmol/L (0.4-2.0) Troponin I High Sensitivity 49 ng/L (</=54) D-Dimer, Quantitative 0.42 mg/L FEU (0.0-0.49) B-Type Natriuretic Peptide 71.11 pg/mL (0-100) Other Laboratory Tests 06/22/24 05:23 Brief Hx & Hospital Course: 74-year-old male with a history of hypertension hypercholesterolemia CVA diabetes BPH status post TURP on hospice brought in for evaluation of syncope and collapse patient was recently started on Coreg for his high blood pressure which caused bradycardia and hypotension which was discontinued while in the hospital patient also has a history of coronary artery disease status post CABG in 2014 ejection fraction 40 percent possible community-acquired pneumonia treated with the Zosyn ER yeast in the urine treated with the Diflucan and prescription were given for Diflucan tablets cardiology placed him on a small dose of metoprolol spironolactone and Entresto. The patient complained of urinary symptoms your seen by Urology Dr. Delgado advised outpatient follow up for TURBT. Discharged home on hospice. Medications transmitted to the pharmacy. General condition poor at the time of discharge Consults/Reason for consult Cardiology consult Urology, Operations or Procedures CT head Condition at Discharge: Fair Final Diagnosis/Problems List Syncope and collapse Likely beta-dominga induced bradycardia/hypotension cardiology consult appreciated Coreg discontinued, placed on low-dose of metoprolol History of Coronary artery disease status post triple-vessel CABG, 2014 Rule out structural heart disease, echocardiogram 40 % ejection fraction Possible community-acquired pneumonia: Zosyn Hypertension Dyslipidemia HX of CVA Emr-yikfirs-jaimxuyan diabetes mellitus Urinary retention: Bladder ultrasound normal Urinary retention BPH-status post TURP, suspect possible stricture disease Elevated PSA 8.[address] Delgado recommendation Outpatient cystoscopy with possible DVIU, TURP versus TURBNC and transrectal ultrasound-guided prostate needle biopsy to be arranged Yeast in the urine: Diflucan [address] head negative CT abdomen pelvis without contrast negative Blood cultures negative Discharge Disposition: Hospice - Home Discharge Instruct/Medications Diet: Cardiac 2g Na,low cholest Activity: Light activity Follow Up/Referral: Stop carvedilol Take Other medications as prescribed Follow up with the hospice Dr Follow up with the mobile home mechanic Dr Mena in two weeks Follow up with the Urology Dr. Delgado in two weeks for prostate surgery 36 (Time Taken for discharge summary 36 minutes) Discharge Statement: "Patient was advised to return to the ER or call 911 if any headaches, dizziness, shortness of breath, chest pain, abdominal pain, bleeding, fevers, or worsening of medical condition. Patient was counseled about treatment plan, medications, possible side effects, patientverbalized understanding. All questions were answered to the best of my ability. This discharge took greater then 30 minutes in planning, reviewing documentation, counseling the patient, and discussing with other team members." ASSESSMENT ASSESSMENT Hospital Course Marginally improved Assessment Syncope and collapse Likely beta-dominga induced bradycardia/hypotension cardiology consult appreciated Coreg discontinued, placed on low-dose of metoprolol History of Coronary artery disease status post triple-vessel CABG, 2014 Rule out structural heart disease, echocardiogram 40 % ejection fraction Possible community-acquired pneumonia: Zosyn Hypertension Dyslipidemia HX of CVA Dla-zuecmzg-nobzeihri diabetes mellitus Urinary retention: Bladder ultrasound normal Urinary retention BPH-status post TURP, suspect possible stricture disease Elevated PSA 8.[address] Delgado recommendation Outpatient cystoscopy with possible DVIU, TURP versus TURBNC and transrectal ultrasound-guided prostate needle biopsy to be arranged Yeast in the urine: Diflucan [address] head negative CT abdomen pelvis without contrast negative Blood cultures negative Date of Service: Jun 23, 2024 Billing Provider: KAMALJIT WEBB MD Common Visit Codes: 67425-PPT/OBS DISCH DAY >30min KAMALJIT WEBB MD Jun 23, 2024 10:53
[2024-06-23 13:09] VITALS: BP 121/69; PULSE 69; RESP 18; TEMP 98.9; O2SAT 98
[2024-06-23 14:06] VITALS: BP 121/73; PULSE 79; TEMP 37.2
== END 2024-06-23 15:10 | disposition hospice, home (50) | DRG 178 ==
LOC: EDBD 10:13 → ER 10:13 → TELE 18:01 → ER 18:02 → EAST 06-20 14:01 → TELE-EAST 06-20 20:06
PROVIDERS: ADMIT Nurse Practitioner Family; ATTEND Family Medicine
DX: J15.69 Pneumonia due to other Gram-negative bacteria (principal); I13.0 Hypertensive heart and chronic kidney disease with heart failure and stage 1 through stage 4 chronic kidney disease, or unspecified chronic kidney disease; I50.42 Chronic combined systolic (congestive) and diastolic (congestive) heart failure; J15.9 Unspecified bacterial pneumonia; E11.65 Type 2 diabetes mellitus with hyperglycemia; Z51.5 Encounter for palliative care; E11.22 Type 2 diabetes mellitus with diabetic chronic kidney disease; I25.10 Atherosclerotic heart disease of native coronary artery without angina pectoris; I95.9 Hypotension, unspecified; N40.0 Benign prostatic hyperplasia without lower urinary tract symptoms; N18.32 Chronic kidney disease, stage 3b; E78.00 Pure hypercholesterolemia, unspecified; T50.995A Adverse effect of other drugs, medicaments and biological substances, initial encounter; Z95.1 Presence of aortocoronary bypass graft; Z79.84 Long term (current) use of oral hypoglycemic drugs; Z88.6 Allergy status to analgesic agent; Z86.73 Personal history of transient ischemic attack (TIA), and cerebral infarction without residual deficits; Z83.3 Family history of diabetes mellitus; Z82.49 Family history of ischemic heart disease and other diseases of the circulatory system; Z90.79 Acquired absence of other genital organ(s); Y92.89 Other specified places as the place of occurrence of the external cause
CPT/HCPCS: 36415; 70450; 71045; 74176; 80048; 80053; 80061; 81001; 82962; 83036; 83605; 83735; 83880; 84154; 84443; 84484; 85025; 85379; 87040; 87086; 87088; 93005; 93306; 99291; G0378; J1450; J1815; J2543